=== PATIENT | male | born 1940 | race Caucasian/White ===

== ENCOUNTER 2018-06-23 03:02 | Inpatient (IN) | payer MEDICARE, BC ==
[~2018-06-23] VITALS: Ht 172.7 cm; Wt 54.5 kg
--- NOTE | ~2018-06-23 | MORECARE ---
CASE MANAGEMENT DISCHARGE SUMMARY PATIENT: RUPERTO MOSER UNIT: [id number] ADM DATE: 06/23/18 AGE: 77 : 39 SEX: M ROOM/BED: D.2225 AUTHOR: RAJ,DOC PHYSICIAN: REFERRING PHYSICIAN: MICAELA ARAUJO MD DATE OF SERVICE: 06/24/18 Discharge Plan Patient Name: RUPERTO MOSER Facility: [facility]:[place] : 1940 Planned Disposition: Home Anticipated Discharge Date: Discharge Date: Expected LOS: Initial Reviewer: [email or web address] Initial Review Date: 06/24/2018 Generated: 06/24/18 4:47 pm Comments DCP- Discharge Planning Updated by [email or web address]: Vashti Young on 06/24/18 2:[address] Patient Name: RUPERTO MOSER Admission Status: ER Accout number: [id number] Admission Date: 06-23-2018 : 1940 Admission Diagnosis: Attending: MICAELA ARAUJO Current LOS: 1 Anticipated DC Date: Planned Disposition: Home Primary Insurance: MEDICARE A & B Discharge Planning Comments: CM met with patient and his to discuss discharge planning. He is drowsy from anesthesia so his answers the questions. He lives with his . His sets up his pill box, otherwise he is independent with all ADL's and IADL's. His states he has a nebulizer that he uses PRN and the med comes in the mail. States she is unsure what company they come from. I discuss availability of DME, rehab, SNF and home health. Discharge plan at this time is to return home. She declines need for HHS at this time. CM will continue to follow and assist with discharge planning/needs. Hay Stacker: Vashti Young DCPIA - Discharge Planning Initial Assessment Updated by [email or web address]: Vashti Young on 06/24/18 3:40 pm * Is the patient Alert and Oriented? Yes * How many steps to enter\exit or inside your home? 2/0 * PCP Dr. Araujo * Pharmacy [facility] * Preadmission Environment Home with Family * ADLs Partial Dependent * Partial ADLs (Assistance needed) Medication Management * Equipment Nebulizer * List name and contact numbers for known caregivers / representatives who currently or will assist patient after discharge: [facility] [phone] - [phone] * Verbal permission to speak to the caregivers and representatives has been obtained from the patient. Yes * Community resources currently utilized None * Additional services required to return to the preadmission environment? No * Can the patient safely return to the preadmission environment? Yes * Has this patient been hospitalized within the prior 30 days at any hospital? No Patient Name: RUPERTO MOSER Page 49851 at 1547 All edits/amendments must be made on the electronic document DICTATION DATE: 06/24/181545 MANAGER OF INVESTIGATIONS: EUSEBIO 06/24/181545 RPT#: [id number] DC DATE: STATUS: ADM IN [facility] [address] [place] [address] END OF REPORT
--- NOTE | ~2018-06-23 | CN ---
PATIENT NAME:RUPERTO HUGGINS MEDICAL RECORD: [id number] : 38 LOCATION:D.MS Walker2225 ADMIT DATE: 06/23/18 ACCOUNT: [id number] CONSULTING PHYSICIAN: LUIS ISRAEL MD REFERRING PHYSICIAN: MICAELA ARAUJO MD DATE OF CONSULTATION: 06/25/2018 CONSULT REQUESTING PHYSICIAN: Micaela Araujo MD REASON FOR CONSULTATION: Right lung mass. HISTORY OF PRESENT ILLNESS: Mr. Huggins is a 77-year-old gentleman who was admitted with right upper quadrant pain, turned out to be suppurative cholecystitis, underwent cholecystectomy yesterday. The patient had routine chest radiograph which showed mass in the right mid lung region, confirmed by the CT scan of the chest. The patient denies any headache. No localized weakness. No hemoptysis. He is losing weight because he is not eating well. REVIEW OF THE SYSTEMS: As in history of present illness. PAST MEDICAL HISTORY: 1. COPD. 2. Hypothyroidism. 3. Hypertension. 4. BPH. PAST SURGICAL HISTORY: 1. He is now status post cholecystectomy. 2. Thyroidectomy. ALLERGIES: HE IS ALLERGIC TO SULFA. MEDICATIONS: Learn It [employer] was reviewed. PERSONAL AND SOCIAL HISTORY: The patient is an ex-smoker and drinker. FAMILY HISTORY: Noncontributory. PHYSICAL EXAMINATION: GENERAL: Now, the patient is lying comfortably in bed. He is not in acute distress. VITAL SIGNS: The blood pressure is 104/45, pulse is 80, respiration is 20, temperature is 98.2, and SpO2 is 97% on room air. HEENT: Conjunctivae are pink. Sclerae are not icteric. NECK: Neck is supple. No JVD. CHEST: The chest excursion is minimal on both sides. There is no wheeze and no rale. HEART: Rhythm regular. Normal sound. No murmur. ABDOMEN: Abdomen is soft. Bowel sounds present. No hepatosplenomegaly. RECTAL: Deferred. EXTREMITIES: No cyanosis. No clubbing. No pedal edema. CENTRAL NERVOUS SYSTEM: The patient is awake and alert. He is a bit confused. DIAGNOSTIC DATA: CTA of the chest; there is no PE, but there is 4- x 5.3- x 4.4-cm right-sided mass, pleural based. There is also spiculated nodule in the CONSULT REPORT [id number] RUPERTO HUGGINS right upper lobe. There is another 6-mm right lower lobe nodule. There is a trace pleural effusion. IMPRESSION: 1. Lung mass, right upper lobe, rule out malignancy, primary versus secondary. 2. COPD without exacerbation. 3. Small right pleural effusion. 4. Status post cholecystectomy. 5. Ex-smoker. 6. Dementia. RECOMMENDATION: 1. We will proceed with CT-guided right lung biopsy. 2. Albuterol/ipratropium nebulizer. 3. DVT prophylaxis. 4. Follow up labs and chest radiograph. Dr. Araujo, thank you for involving me in the care of Mr. Huggins. TRANSINT:[id number] Voice Confirmation ID: [id number] DOCUMENT ID: [id number] LUIS ISRAEL MD CC: [id number] DICTATION DATE: 06/25/18 143 ALGOLOGIST: 06/25/18 1822 ADM IN [facility] [address] [place] [address]
--- NOTE | ~2018-06-23 | MORECARE ---
CASE MANAGEMENT DISCHARGE SUMMARY PATIENT: RUPERTO OMSER UNIT: [id number] ADM DATE: 06/23/18 AGE: 77 : 39 SEX: M ROOM/BED: D.2225 AUTHOR: SHU ANTHONY PHYSICIAN: REFERRING PHYSICIAN: MICAELA ARAUJO MD DATE OF SERVICE: 06/28/18 Discharge Plan Patient Name: RUPERTO MOSER Facility: [facility]:[place] : 1940 Planned Disposition: Home Anticipated Discharge Date: Discharge Date: Expected LOS: Initial Reviewer: [email or web address] Initial Review Date: 06/24/2018 Generated: 06/28/18 9:56 pm Comments DCP- Discharge Planning Updated by [email or web address]: Rhea Mao on 06/28/18 7:[address] PHYSICAL THERAPY EVALUATION DONE. AWAITING OT EVAL. ACUTE REHAB PRESCREEN REQUESTED. CM WILL F/U WITH THE REHAB SCREENER IN THE AM TO CONFIRM THE CONSULT RECEIVED. DCP- Discharge Planning Updated by [email or web address]: Vashti Young on 06/24/18 2:[address] Patient Name: RUPERTO MOSER Admission Status: ER Accout number: [id number] Admission Date: 06-23-2018 : 1940 Admission Diagnosis: Attending: MICAELA ARAUJO Current LOS: 1 Anticipated DC Date: Planned Disposition: Home Primary Insurance: MEDICARE A & B Discharge Planning Comments: CM met with patient and his to discuss discharge planning. He is drowsy from anesthesia so his answers the questions. He lives with his . His sets up his pill box, otherwise he is independent with all ADL's and IADL's. His states he has a nebulizer that he uses PRN and the med comes in the mail. States she is unsure what company they come from. I discuss availability of DME, rehab, SNF and home health. Discharge plan at this time is to return home. She declines need for HHS at this time. CM will continue to follow and assist with discharge planning/needs. Tobacco Cutter: Vashti Young DCPIA - Discharge Planning Initial Assessment Updated by [email or web address]: Vashti Young on 06/24/18 3:40 pm * Is the patient Alert and Oriented? Yes * How many steps to enter\exit or inside your home? 2/0 * PCP Dr. Araujo * [facility] * Preadmission Environment Home with Family * ADLs Partial Dependent * Partial ADLs (Assistance needed) Medication Management * Equipment Nebulizer * List name and contact numbers for known caregivers / representatives who currently or will assist patient after discharge: [facility] - [phone] [facility] [phone] * Verbal permission to speak to the caregivers and representatives has been obtained from the patient. Yes * Community resources currently utilized None * Additional services required to return to the preadmission environment? No * Can the patient safely return to the preadmission environment? Yes * Has this patient been hospitalized within the prior 30 days at any hospital? No Last DP export: 06/24/18 2:47 Patient Name: RUPERTO MOSER Page 28823 at 205 All edits/amendments must be made on the electronic document DICTATION DATE: 06/28/182055 BIOFUELS PRODUCTION ASSOCIATE: EUSEBIO 06/28/182055 RPT#: [id number] DC DATE: STATUS: ADM IN [facility] [address] [place] [address] END OF REPORT
--- NOTE | ~2018-06-23 | HP ---
PATIENT: RUPERTO MOSER MEDICAL RECORD: [id number] ACCOUNT: [id number] LOCATION:D.MS Walker2225 : [birth year] ADMISSION DATE: 06/23/18 PCP: MANDA ARAUJO MD HISTORY AND PHYSICAL EXAMINATION DATE OF ADMISSION: 06/23/2018 CHIEF COMPLAINT: Abdominal pain. HISTORY OF PRESENT ILLNESS: The patient is a 77-year-old gentleman with longstanding history of alcoholism. The patient states that on Friday, he developed pain in the right upper quadrant, pain had become severely intense. He has had nausea and vomiting, now is complaining of having pain in the lower part of his abdomen. The states that the patient has ate very little food. PAST MEDICAL HISTORY: Significant that he has had history of COPD. He has also had hypothyroidism, he has had hypertension, and BPH. PAST SURGICAL HISTORY: He has had a partial thyroidectomy. He has had hand surgery. The patient has had numerous skin cancers removed. MEDICATIONS: Currently, include levothyroxine 100 mcg once a day, metoprolol 25 mg p.o. b.i.d., oxybutynin 5 mg p.r.n. every day, Protonix 40 mg once a day, ProAir HFA 90 mcg q.4 hours p.r.n. shortness of breath, tamsulosin 0.4 mg once a day. ALLERGIES: THE PATIENT HAS ALLERGY TO SULFA. SOCIAL HISTORY: The patient retired from [employer]. He is . Educated through the 12th grade. HABITS: The patient has been a 1 pack per day smoker. He also has been a heavy drinker. FAMILY HISTORY: Mother of pneumonia at 72. Father has CVA, at 83. One brother of substance abuse. REVIEW OF SYSTEMS: CONSTITUTIONAL: He denies any headaches, seizure, or syncope. Denies change in vision or auditory acuity. PULMONARY: He denies any shortness of breath, cough, congestion, history of TB, asthma, or bronchitis. CARDIOVASCULAR: No chest pain, palpitations, PND, or orthopnea. GASTROINTESTINAL: No chronic nausea, vomiting, melena or hematochezia. GENITOURINARY: No urgency, frequency, or dysuria. PHYSICAL EXAMINATION: GENERAL: In the Emergency Room, this patient was in moderate amount of distress. He was alert. He was oriented times 3. VITAL SIGNS: He had a pulse of 114, his respirations 20, his blood pressure 135/84, his O2 sat was 98%. His temperature was 97.5. HEENT: Head is normocephalic. No lesions. Ears: TMs clear. Eyes: Pupils equal, round, reactive to light. His extraocular movements are intact. His nasal cavity, oral cavity, and oropharynx clear. NECK: Supple. There is no adenopathy. HISTORY AND PHYSICAL [id number] COCKMAN,RUPERTO HEART: Slightly tachycardic. LUNGS: Clear. ABDOMEN: He did have some right upper quadrant tenderness with some rebound and guarding, some subjective lower abdominal discomfort. LABORATORY DATA: Sodium 137, potassium 3.5, his chloride was 98. BUN was 18, creatinine 1.1. Cardiac enzymes were unremarkable. Liver functions unremarkable. White count is elevated at 16.9, hemoglobin 17, hematocrit 48.2, his platelets were 155. DIAGNOSTIC DATA: CT scan as reported by the Emergency Room physician showed findings consistent with acute cholecystitis. ASSESSMENT: History of acute cholecystitis, history of alcoholism, hypothyroidism, hypertension, gastroesophageal reflux, history of COPD. PLAN: The patient is admitted. Surgical consultation will be obtained. The patient will be started on morphine for pain as well as Zofran for nausea, IV Protonix. Blood cultures will be obtained. Correct his potassium. TRANSINT:[id number] Voice Confirmation ID: [id number] DOCUMENT ID: [id number] MICAELA ARAUJO MD at 0656 CC: [id number] DICTATION DATE: 06/23/18730 TELECOMMUNICATIONS SPECIALIST: 06/23/18 0755 ADM IN [facility] [address] [place] [address]
[2018-06-23] MEDS ORDERED: LEVOXYL100 MCG PO (03:06)
[2018-06-23] MEDS ORDERED: FLOMAX0.4 MG PO (03:06)
[2018-06-23] MEDS ORDERED: TOPROL XL25 MG PO (03:06)
[2018-06-23] MEDS ORDERED: PROTONIX40 MG PO (03:07)
[2018-06-23 03:28] LABS: BASOPHILS 0.1 % (0-2); EOSINOPHILS 0.3 % (0-7); HEMATOCRIT 48.2 % (42.0-54.0); IMMATURE GRANULOCYTES 0.4 % (0-5); LYMPHOCYTES 3.8 % (15-50); MCH 34.7 pg (26.0-34.0); MCHC 35.3 g/dL (31.0-37.0); MCV 98.4 fL (80.0-100.0); MEAN PLATELET VOLUME 11.8 fL (7.4-10.4); MONOCYTES 9.5 % (2-11); NEUTROPHILS 85.9 % (40-80); RDW 13.4 % (11.5-14.5); WBC 16.9 10x3/uL (4.8-10.8)
[2018-06-23 03:32] LABS: PLATELET COUNT 151 10x3/uL (130-400)
[2018-06-23 03:38] LABS: ALBUMIN 2.8 g/dL (3.4-5.0); ALKALINE PHOSPHATASE 76 U/L (46-116); ALT (SGPT) 7 U/L (10-68); BILIRUBIN - TOTAL 1.46 mg/dL (0.2-1.3); CALC OSMOLALITY 276 mosm/kg (275-300); CALCIUM 8.8 mg/dL (8.5-10.1); CHLORIDE - SERUM 98 mmol/L (98-107); CREATININE - SERUM 1.1 mg/dL (0.6-1.3); GLUCOSE 115 mg/dL (74-106); POTASSIUM - SERUM 3.5 mmol/L (3.5-5.1); PROTEIN - SERUM 7.2 g/dL (6.4-8.2); SODIUM 137 mmol/L (136-145); UREA NITROGEN 18 mg/dL (7-18); eGFR NON AFRICAN AMERICAN 69 mL/min (90-120)
[2018-06-23 03:49] LABS: AMYLASE - SERUM 11 U/L (25-115); LIPASE 77 U/L (73-393)
[2018-06-23 03:50] LABS: TROPONIN-I < 0.017 ng/mL (0.000-0.060)
[2018-06-23 06:35] VITALS: BP 130/70
[2018-06-23 08:05] VITALS: BP 120/66
[2018-06-23 08:05] LABS: INR 1.11 (0.85-1.17); PROTIME 13.8 SECONDS (11.6-15.0)
[2018-06-23 12:02] VITALS: BP 112/64
[2018-06-23 14:30] VITALS: BMI 18.2
[2018-06-23 16:21] VITALS: BP 107/59
[2018-06-23 16:22] LABS: APPEARANCE CLEAR (CLEAR); BILIRUBIN NEGATIVE (NEGATIVE); COLOR DK YELLOW (YELLOW); GLUCOSE NEGATIVE (NEGATIVE); KETONE NEGATIVE (NEGATIVE); NITRITE NEGATIVE (NEGATIVE); PROTEIN NEGATIVE (NEGATIVE); UROBILINOGEN NORMAL (NORMAL)
[2018-06-23 16:51] VITALS: BMI 18.2
[2018-06-23 21:01] VITALS: BP 139/65
[2018-06-24 01:39] VITALS: BP 115/57
[2018-06-24 04:39] LABS: ALKALINE PHOSPHATASE 75 U/L (46-116); BILIRUBIN - TOTAL 0.74 mg/dL (0.2-1.3); CALC OSMOLALITY 284 mosm/kg (275-300); CALCIUM 7.4 mg/dL (8.5-10.1); CARBON DIOXIDE 28.4 mmol/L (21.0-32.0); CHLORIDE - SERUM 107 mmol/L (98-107); GLUCOSE 103 mg/dL (74-106); POTASSIUM - SERUM 3.6 mmol/L (3.5-5.1); PROTEIN - SERUM 5.6 g/dL (6.4-8.2); SODIUM 142 mmol/L (136-145); UREA NITROGEN 19 mg/dL (7-18); eGFR NON AFRICAN AMERICAN 77 mL/min (90-120)
[2018-06-24 04:40] LABS: ALT (SGPT) 5 U/L (10-68)
[2018-06-24 04:54] LABS: BASOPHILS 0.2 % (0-2); EOSINOPHILS 1.3 % (0-7); HEMATOCRIT 39.3 % (42.0-54.0); IMMATURE GRANULOCYTES 0.1 % (0-5); LYMPHOCYTES 4.8 % (15-50); MCH 33.2 pg (26.0-34.0); MCHC 33.1 g/dL (31.0-37.0); MEAN PLATELET VOLUME 11.8 fL (7.4-10.4); MONOCYTES 11.6 % (2-11); PLATELET COUNT 155 10x3/uL (130-400); RDW 13.6 % (11.5-14.5)
[2018-06-24 04:55] LABS: MCV 100.5 fL (80.0-100.0); RBC 3.91 10x6/uL (4.20-6.10); WBC 10.3 10x3/uL (4.8-10.8)
[2018-06-24 05:58] VITALS: BP 124/64
[2018-06-24 09:38] VITALS: BP 150/70
[2018-06-24 13:30] VITALS: BP 110/60
[2018-06-24 17:15] VITALS: BP 122/64
[2018-06-24 21:13] VITALS: BP 133/64
[2018-06-25 04:25] LABS: BASOPHILS 0.1 % (0-2); EOSINOPHILS 0 % (0-7); HEMATOCRIT 40.1 % (42.0-54.0); HEMOGLOBIN 13.4 g/dL (13.5-17.5); IMMATURE GRANULOCYTES 0.5 % (0-5); LYMPHOCYTES 2.3 % (15-50); MCH 33.6 pg (26.0-34.0); MCHC 33.4 g/dL (31.0-37.0); MCV 100.5 fL (80.0-100.0); MEAN PLATELET VOLUME 11.2 fL (7.4-10.4); MONOCYTES 11.9 % (2-11); NEUTROPHILS 85.2 % (40-80); PLATELET COUNT 178 10x3/uL (130-400); RBC 3.99 10x6/uL (4.20-6.10); RDW 13.3 % (11.5-14.5); WBC 10.9 10x3/uL (4.8-10.8)
[2018-06-25 04:33] VITALS: BP 103/45
[2018-06-25 04:47] LABS: ALBUMIN 1.7 g/dL (3.4-5.0); ALKALINE PHOSPHATASE 201 U/L (46-116); BILIRUBIN - TOTAL 3.94 mg/dL (0.2-1.3); CALCIUM 7.1 mg/dL (8.5-10.1); CARBON DIOXIDE 25.8 mmol/L (21.0-32.0); CHLORIDE - SERUM 107 mmol/L (98-107); PROTEIN - SERUM 5.5 g/dL (6.4-8.2); SODIUM 140 mmol/L (136-145); UREA NITROGEN 18 mg/dL (7-18); eGFR NON AFRICAN AMERICAN 77 mL/min (90-120)
[2018-06-25 04:59] LABS: ALT (SGPT) 98 U/L (10-68); CALC OSMOLALITY 286 mosm/kg (275-300); GLUCOSE 212 mg/dL (74-106)
[2018-06-25 08:30] VITALS: BP 114/78
[2018-06-25 12:32] VITALS: BP 104/45; BP 125/55
[2018-06-25 21:19] VITALS: BP 148/72
[2018-06-26 04:02] LABS: BASOPHILS 0.1 % (0-2); EOSINOPHILS 0 % (0-7); HEMATOCRIT 39.2 % (42.0-54.0); HEMOGLOBIN 13.2 g/dL (13.5-17.5); IMMATURE GRANULOCYTES 0.4 % (0-5); LYMPHOCYTES 7.3 % (15-50); MCH 33.2 pg (26.0-34.0); MCHC 33.7 g/dL (31.0-37.0); MCV 98.7 fL (80.0-100.0); MONOCYTES 8.2 % (2-11); PLATELET COUNT 190 10x3/uL (130-400); RBC 3.97 10x6/uL (4.20-6.10); RDW 13.2 % (11.5-14.5); WBC 13.6 10x3/uL (4.8-10.8)
[2018-06-26 04:14] LABS: CALC OSMOLALITY 284 mosm/kg (275-300); CARBON DIOXIDE 24.9 mmol/L (21.0-32.0); CHLORIDE - SERUM 107 mmol/L (98-107); CREATININE - SERUM 0.9 mg/dL (0.6-1.3); POTASSIUM - SERUM 3.6 mmol/L (3.5-5.1); SODIUM 142 mmol/L (136-145); UREA NITROGEN 17 mg/dL (7-18); eGFR NON AFRICAN AMERICAN 87 mL/min (90-120)
[2018-06-26 04:20] LABS: GLUCOSE 99 mg/dL (74-106)
[2018-06-26 06:48] LABS: APTT 34.1 SECONDS (22.8-39.4); INR 1.13 (0.85-1.17)
[2018-06-26 09:00] VITALS: BP 121/49
[2018-06-26 16:39] VITALS: BP 146/76
[2018-06-26 21:15] VITALS: BP 147/78
[2018-06-27 01:19] VITALS: BP 146/70
[2018-06-27 05:15] VITALS: BP 139/53
[2018-06-27 05:43] LABS: BASOPHILS 0.1 % (0-2); EOSINOPHILS 0.5 % (0-7); HEMATOCRIT 36.5 % (42.0-54.0); HEMOGLOBIN 12.3 g/dL (13.5-17.5); IMMATURE GRANULOCYTES 0.5 % (0-5); LYMPHOCYTES 9.4 % (15-50); MCH 33.1 pg (26.0-34.0); MCHC 33.7 g/dL (31.0-37.0); MCV 98.1 fL (80.0-100.0); MEAN PLATELET VOLUME 10.5 fL (7.4-10.4); MONOCYTES 11.2 % (2-11); NEUTROPHILS 78.3 % (40-80); PLATELET COUNT 197 10x3/uL (130-400); RBC 3.72 10x6/uL (4.20-6.10); RDW 13.3 % (11.5-14.5)
[2018-06-27 05:48] LABS: WBC 8.4 10x3/uL (4.8-10.8)
[2018-06-27 06:06] LABS: ALBUMIN 1.7 g/dL (3.4-5.0); ALKALINE PHOSPHATASE 350 U/L (46-116); ALT (SGPT) 251 U/L (10-68); BILIRUBIN - TOTAL 5.56 mg/dL (0.2-1.3); CALC OSMOLALITY 291 mosm/kg (275-300); CALCIUM 7.8 mg/dL (8.5-10.1); CARBON DIOXIDE 28.4 mmol/L (21.0-32.0); CHLORIDE - SERUM 111 mmol/L (98-107); CREATININE - SERUM 0.7 mg/dL (0.6-1.3); GLUCOSE 90 mg/dL (74-106); MAGNESIUM - SERUM 1.4 mg/dL (1.8-2.4); PHOSPHOROUS 1.8 mg/dL (2.5-4.9); POTASSIUM - SERUM 3.6 mmol/L (3.5-5.1); PROTEIN - SERUM 5.1 g/dL (6.4-8.2); SODIUM 146 mmol/L (136-145); UREA NITROGEN 14 mg/dL (7-18); eGFR NON AFRICAN AMERICAN > 90 mL/min (90-120)
[2018-06-27 08:32] VITALS: BP 141/95
[2018-06-27 14:15] VITALS: BP 134/77
[2018-06-27 16:20] VITALS: BP 130/85
[2018-06-27 20:51] VITALS: BP 161/77
[2018-06-28 01:52] VITALS: BP 164/74
[2018-06-28 05:05] VITALS: BP 154/79
[2018-06-28 05:36] LABS: BASOPHILS 0.1 % (0-2); EOSINOPHILS 1.1 % (0-7); HEMATOCRIT 40.8 % (42.0-54.0); HEMOGLOBIN 13.7 g/dL (13.5-17.5); IMMATURE GRANULOCYTES 0.7 % (0-5); LYMPHOCYTES 10.2 % (15-50); MCH 33.3 pg (26.0-34.0); MCHC 33.6 g/dL (31.0-37.0); MEAN PLATELET VOLUME 10.7 fL (7.4-10.4); NEUTROPHILS 78.9 % (40-80); PLATELET COUNT 227 10x3/uL (130-400); RBC 4.12 10x6/uL (4.20-6.10); RDW 13.7 % (11.5-14.5); WBC 10.1 10x3/uL (4.8-10.8)
[2018-06-28 05:59] LABS: ALBUMIN 1.9 g/dL (3.4-5.0); ALKALINE PHOSPHATASE 432 U/L (46-116); ALT (SGPT) 208 U/L (10-68); BILIRUBIN - TOTAL 4.68 mg/dL (0.2-1.3); CALCIUM 7.6 mg/dL (8.5-10.1); CARBON DIOXIDE 30.2 mmol/L (21.0-32.0); CHLORIDE - SERUM 109 mmol/L (98-107); CREATININE - SERUM 0.7 mg/dL (0.6-1.3); GLUCOSE 101 mg/dL (74-106); POTASSIUM - SERUM 3.4 mmol/L (3.5-5.1); SODIUM 145 mmol/L (136-145); eGFR NON AFRICAN AMERICAN > 90 mL/min (90-120)
[2018-06-28 06:00] LABS: CALC OSMOLALITY 287 mosm/kg (275-300); MAGNESIUM - SERUM 1.8 mg/dL (1.8-2.4); UREA NITROGEN 10 mg/dL (7-18)
[2018-06-28 08:00] VITALS: BP 163/85
[2018-06-28 13:49] VITALS: BP 142/63
[2018-06-28 18:12] VITALS: BP 143/93
[2018-06-28 20:00] VITALS: BP 148/64
[2018-06-29] VITALS: BP 186/92
[2018-06-29 04:00] VITALS: BP 177/74
[2018-06-29 04:02] LABS: BASOPHILS 0.1 % (0-2); EOSINOPHILS 1.5 % (0-7); HEMATOCRIT 37.4 % (42.0-54.0); HEMOGLOBIN 12.4 g/dL (13.5-17.5); IMMATURE GRANULOCYTES 1.2 % (0-5); LYMPHOCYTES 9.5 % (15-50); MCH 32.8 pg (26.0-34.0); MCHC 33.2 g/dL (31.0-37.0); MCV 98.9 fL (80.0-100.0); MEAN PLATELET VOLUME 10.9 fL (7.4-10.4); MONOCYTES 7.2 % (2-11); NEUTROPHILS 80.5 % (40-80); PLATELET COUNT 251 10x3/uL (130-400); RBC 3.78 10x6/uL (4.20-6.10); RDW 13.9 % (11.5-14.5)
[2018-06-29 04:22] LABS: ALBUMIN 1.7 g/dL (3.4-5.0); ALKALINE PHOSPHATASE 357 U/L (46-116); ALT (SGPT) 121 U/L (10-68); BILIRUBIN - TOTAL 2.68 mg/dL (0.2-1.3); CALC OSMOLALITY 290 mosm/kg (275-300); CALCIUM 7.6 mg/dL (8.5-10.1); CARBON DIOXIDE 30.2 mmol/L (21.0-32.0); CHLORIDE - SERUM 111 mmol/L (98-107); CREATININE - SERUM 0.6 mg/dL (0.6-1.3); GLUCOSE 105 mg/dL (74-106); MAGNESIUM - SERUM 2.1 mg/dL (1.8-2.4); PHOSPHOROUS 2.2 mg/dL (2.5-4.9); POTASSIUM - SERUM 3.2 mmol/L (3.5-5.1); PROTEIN - SERUM 5.2 g/dL (6.4-8.2); SODIUM 147 mmol/L (136-145); UREA NITROGEN 11 mg/dL (7-18); eGFR NON AFRICAN AMERICAN > 90 mL/min (90-120)
[2018-06-29 08:45] VITALS: BP 146/47
[2018-06-29 13:05] VITALS: BP 156/69
[2018-06-29 16:35] VITALS: BP 146/71
[2018-06-29 19:23] VITALS: Ht 172.7 cm; Wt 54.5 kg
[2018-06-30 04:44] LABS: BASOPHILS 0.1 % (0-2); EOSINOPHILS 1.3 % (0-7); HEMATOCRIT 40.4 % (42.0-54.0); HEMOGLOBIN 13.1 g/dL (13.5-17.5); IMMATURE GRANULOCYTES 1.1 % (0-5); LYMPHOCYTES 7.7 % (15-50); MCH 32.8 pg (26.0-34.0); MCHC 32.4 g/dL (31.0-37.0); MCV 101.3 fL (80.0-100.0); MEAN PLATELET VOLUME 11.2 fL (7.4-10.4); MONOCYTES 4.9 % (2-11); NEUTROPHILS 84.9 % (40-80); PLATELET COUNT 317 10x3/uL (130-400); RBC 3.99 10x6/uL (4.20-6.10); RDW 14.1 % (11.5-14.5); WBC 17.9 10x3/uL (4.8-10.8)
[2018-06-30 04:45] LABS: BILIRUBIN - DIRECT 1.37 mg/dL (0.00-0.30); CALC OSMOLALITY 294 mosm/kg (275-300); CALCIUM 8.1 mg/dL (8.5-10.1); CARBON DIOXIDE 30.9 mmol/L (21.0-32.0); CHLORIDE - SERUM 110 mmol/L (98-107); CREATININE - SERUM 0.7 mg/dL (0.6-1.3); GLUCOSE 113 mg/dL (74-106); PHOSPHOROUS 2.4 mg/dL (2.5-4.9); POTASSIUM - SERUM 3.4 mmol/L (3.5-5.1); SODIUM 148 mmol/L (136-145); UREA NITROGEN 13 mg/dL (7-18); eGFR NON AFRICAN AMERICAN > 90 mL/min (90-120)
[2018-06-30 04:53] LABS: INR 1.16 (0.85-1.17); PROTIME 14.3 SECONDS (11.6-15.0)
[2018-06-30 05:46] VITALS: BP 134/60
[2018-06-30 09:21] VITALS: BP 150/73
[2018-06-30 12:51] VITALS: BP 148/74
[2018-06-30 17:31] VITALS: BP 147/73
== END 2018-06-30 18:40 | DRG 418 ==
LOC: D.ER 03:02 → D.MS 06:31
PROVIDERS: Family Medicine; Radiology Diagnostic Radiology; Surgery
PROC: 0FT44ZZ Resection of Gallbladder, Percutaneous Endoscopic Approach (ICD-10-PCS; principal; 2018-06-24 10:15)
PROC: 0BBK3ZX Excision of Right Lung, Percutaneous Approach, Diagnostic (ICD-10-PCS; 2018-06-26)
DX: K81.0 Acute cholecystitis (principal); F10.231 Alcohol dependence with withdrawal delirium; Z68.1 Body mass index [BMI] 19.9 or less, adult; C78.01 Secondary malignant neoplasm of right lung; K82.A1 Gangrene of gallbladder in cholecystitis; J44.9 Chronic obstructive pulmonary disease, unspecified; I10 Essential (primary) hypertension; F10.97 Alcohol use, unspecified with alcohol-induced persisting dementia; R91.1 Solitary pulmonary nodule; D49.1 Neoplasm of unspecified behavior of respiratory system; C80.1 Malignant (primary) neoplasm, unspecified; E87.6 Hypokalemia

== ENCOUNTER 2018-06-30 19:01 | Inpatient (IN) | payer MEDICARE, BC ==
[~2018-06-30] VITALS: Ht 172.7 cm; Wt 56.5 kg
[~2018-06-30 19:01] MED LIST: FLOMAX0.4 MG PO; LEVOXYL100 MCG PO; PROTONIX40 MG PO; TOPROL XL25 MG PO
[2018-06-30 23:41] VITALS: BP 163/91; BMI 18.2
[2018-07-01 06:53] LABS: BASOPHILS 0.1 % (0-2); EOSINOPHILS 0.6 % (0-7); HEMATOCRIT 37.1 % (42.0-54.0); HEMOGLOBIN 12.1 g/dL (13.5-17.5); IMMATURE GRANULOCYTES 0.8 % (0-5); LYMPHOCYTES 6.5 % (15-50); MCH 33.1 pg (26.0-34.0); MCHC 32.6 g/dL (31.0-37.0); MCV 101.4 fL (80.0-100.0); MEAN PLATELET VOLUME 11.2 fL (7.4-10.4); MONOCYTES 3.7 % (2-11); NEUTROPHILS 88.3 % (40-80); PLATELET COUNT 312 10x3/uL (130-400); RBC 3.66 10x6/uL (4.20-6.10); RDW 14.1 % (11.5-14.5); WBC 17.5 10x3/uL (4.8-10.8)
[2018-07-01 07:10] LABS: CALC OSMOLALITY 287 mosm/kg (275-300); CARBON DIOXIDE 28.9 mmol/L (21.0-32.0); CHLORIDE - SERUM 108 mmol/L (98-107); CREATININE - SERUM 0.7 mg/dL (0.6-1.3); GLUCOSE 92 mg/dL (74-106); POTASSIUM - SERUM 3.7 mmol/L (3.5-5.1); SODIUM 145 mmol/L (136-145); UREA NITROGEN 10 mg/dL (7-18); eGFR NON AFRICAN AMERICAN > 90 mL/min (90-120)
[2018-07-01 08:00] VITALS: BP 175/86
[2018-07-01 13:11] VITALS: BMI 18.2
[2018-07-01 19:00] VITALS: BP 173/82
[2018-07-02 08:00] VITALS: BP 156/77
[2018-07-02 19:00] VITALS: BP 158/80
[2018-07-03 07:14] LABS: BASOPHILS 0.2 % (0-2); EOSINOPHILS 0.9 % (0-7); HEMATOCRIT 38.2 % (42.0-54.0); HEMOGLOBIN 12.4 g/dL (13.5-17.5); IMMATURE GRANULOCYTES 0.6 % (0-5); LYMPHOCYTES 7.8 % (15-50); MCH 32.9 pg (26.0-34.0); MCHC 32.5 g/dL (31.0-37.0); MCV 101.3 fL (80.0-100.0); MEAN PLATELET VOLUME 11.1 fL (7.4-10.4); NEUTROPHILS 86.5 % (40-80); PLATELET COUNT 372 10x3/uL (130-400); RBC 3.77 10x6/uL (4.20-6.10); RDW 13.8 % (11.5-14.5); WBC 13.2 10x3/uL (4.8-10.8)
[2018-07-03 07:26] LABS: CALC OSMOLALITY 286 mosm/kg (275-300); CALCIUM 8.5 mg/dL (8.5-10.1); CARBON DIOXIDE 33.9 mmol/L (21.0-32.0); CHLORIDE - SERUM 105 mmol/L (98-107); CREATININE - SERUM 0.8 mg/dL (0.6-1.3); GLUCOSE 86 mg/dL (74-106); POTASSIUM - SERUM 3.4 mmol/L (3.5-5.1); SODIUM 145 mmol/L (136-145); UREA NITROGEN 9 mg/dL (7-18); eGFR NON AFRICAN AMERICAN > 90 mL/min (90-120)
[2018-07-03 08:00] VITALS: BP 156/72
[2018-07-03 19:00] VITALS: BP 143/68
[2018-07-04 09:06] VITALS: BP 158/77
[2018-07-04 23:21] VITALS: BP 152/75
[2018-07-05 08:00] VITALS: BP 133/79
[2018-07-05 20:58] VITALS: BP 152/84
[2018-07-06 06:49] LABS: BASOPHILS 0.2 % (0-2); HEMOGLOBIN 12.5 g/dL (13.5-17.5); IMMATURE GRANULOCYTES 0.2 % (0-5); LYMPHOCYTES 11.5 % (15-50); MCH 32.6 pg (26.0-34.0); MCHC 32.9 g/dL (31.0-37.0); MEAN PLATELET VOLUME 11.3 fL (7.4-10.4); NEUTROPHILS 82.1 % (40-80); PLATELET COUNT 422 10x3/uL (130-400); RBC 3.84 10x6/uL (4.20-6.10); RDW 13.8 % (11.5-14.5); WBC 12.6 10x3/uL (4.8-10.8)
[2018-07-06 07:11] LABS: CALC OSMOLALITY 281 mosm/kg (275-300); CALCIUM 8.6 mg/dL (8.5-10.1); CARBON DIOXIDE 33.6 mmol/L (21.0-32.0); CHLORIDE - SERUM 103 mmol/L (98-107); CREATININE - SERUM 0.8 mg/dL (0.6-1.3); GLUCOSE 87 mg/dL (74-106); POTASSIUM - SERUM 3.4 mmol/L (3.5-5.1); SODIUM 143 mmol/L (136-145); UREA NITROGEN 8 mg/dL (7-18); eGFR NON AFRICAN AMERICAN > 90 mL/min (90-120)
[2018-07-06 08:05] VITALS: BP 177/84
[2018-07-06 19:02] VITALS: BP 129/65
[2018-07-07 07:55] VITALS: BP 137/70
[2018-07-07 21:26] VITALS: BP 134/53
[2018-07-08 06:08] LABS: BASOPHILS 0.2 % (0-2); EOSINOPHILS 2.1 % (0-7); HEMATOCRIT 38.2 % (42.0-54.0); HEMOGLOBIN 12.4 g/dL (13.5-17.5); IMMATURE GRANULOCYTES 0.4 % (0-5); LYMPHOCYTES 12.6 % (15-50); MCH 32.6 pg (26.0-34.0); MCHC 32.5 g/dL (31.0-37.0); MCV 100.5 fL (80.0-100.0); MEAN PLATELET VOLUME 11.4 fL (7.4-10.4); MONOCYTES 6.4 % (2-11); NEUTROPHILS 78.3 % (40-80); PLATELET COUNT 444 10x3/uL (130-400); RDW 14.2 % (11.5-14.5); WBC 12.2 10x3/uL (4.8-10.8)
[2018-07-08 06:21] LABS: CALCIUM 8.9 mg/dL (8.5-10.1); CARBON DIOXIDE 34.5 mmol/L (21.0-32.0); CHLORIDE - SERUM 104 mmol/L (98-107); CREATININE - SERUM 0.9 mg/dL (0.6-1.3); GLUCOSE 96 mg/dL (74-106); SODIUM 142 mmol/L (136-145); eGFR NON AFRICAN AMERICAN 87 mL/min (90-120)
[2018-07-08 06:23] LABS: CALC OSMOLALITY 282 mosm/kg (275-300); POTASSIUM - SERUM 4.7 mmol/L (3.5-5.1); UREA NITROGEN 12 mg/dL (7-18)
[2018-07-08 08:00] VITALS: BP 120/66
[2018-07-08 20:20] VITALS: BP 121/62
[2018-07-08 20:59] VITALS: Ht 172.7 cm; Wt 56.5 kg
[2018-07-09 08:00] VITALS: BP 119/59
--- NOTE | 2018-07-09 15:03 | RHP ---
PATIENT: RUPERTO MOSER MEDICAL RECORD: [id number] ACCOUNT: [id number] LOCATION:[id number] : 38 ADMISSION DATE: 06/30/18 REHABILITATION HISTORY AND PHYSICAL EXAMINATION POST ADMISSION PHYSICIAN EXAMINATION ADMITTING DIAGNOSIS: Chronic obstructive pulmonary disease. HISTORY OF PRESENT ILLNESS: The patient is admitted to inpatient rehab for a pulmonary diagnosis of COPD. He apparently developed some pain on 06/20/2018 in his right upper quadrant, became intense. He had nausea and vomiting, presented to the ED with complaints of having pain. He has got history of COPD, hypothyroidism, hypertension, BPH, longstanding history of alcoholism, nicotine dependence. CT scan was consistent with acute cholecystitis. He underwent a laparoscopic cholecystectomy on 06/24/2018. During his acute stay, he was found to have a mass in his chest x-ray that was followed by a CT of his chest, which demonstrated a 5.3 cm right lower lobe mass and 1.6 spiculated opacity in the right upper lobe at the apex. It was diagnosed with scarring versus cancer. He underwent a CT-guided biopsy, which showed adenocarcinoma. He has become weak. He is oxygen dependent, debilitating for mobility, requiring supplemental O2 as needed, increasing shortness of breath and confusion. These are all barriers to his discharge at home. He lives at home with his , was independent with his mobility and ADLs prior to this. He is currently set up for min assist with ADLs and mod assist with mobility, tiring very easily and becoming shortness of breath with any type of exertion. He and his plan for him to return home at his prior level of functioning and hopefully be able to develop a treatment plan for his new diagnosis of adenocarcinoma in his right lower lobe of his lung. COMORBIDITIES: In this patient include an adenocarcinoma of the lung, COPD, small right pleural effusion, ex-smoker, dementia, alcohol use, leukocytosis, anemia, hypokalemia, hypothyroidism, hypertension, BPH, abdominal pain, necrotizing cholecystitis and acute hemorrhagic serositis. PAST MEDICAL HISTORY: Significant for MS, COPD, hypothyroidism, hypertension, BPH, alcohol use, syndactyly and tobacco use. PAST SURGICAL HISTORY: Includes thyroidectomy, hand surgery, numerous skin surgeries removed, back surgery and now cholecystectomy. ALLERGIES: SULFA. CURRENT MEDICATIONS: Include Flomax 0.4 mg daily, Protonix 40 mg daily, metoprolol 25 mg daily, Synthroid 100 mcg daily, polyethylene glycol 17 grams in 8 ounce of water daily and Benadryl p.r.n. HABITS: No current alcohol or tobacco use. He does have a history of alcohol and tobacco use. FAMILY HISTORY: Noncontributory. SOCIAL HISTORY: The patient hopes to return back home with his , hopefully we will work out some type of treatment plan with heme/onc about his cancer. REVIEW OF SYSTEMS: HISTORY AND PHYSICAL [id number] RUPERTO MOSER GENERAL: He does complain of weakness and fatigue. HEENT: Denies cold, cough, or congestion. CARDIOVASCULAR: He denies chest pain. PHYSICAL EXAMINATION: VITAL SIGNS: Stable, afebrile. GENERAL: A very thin elderly gentleman, in no acute distress, alert upon exam. HEENT: Normocephalic and atraumatic. Mucosa moist. NECK: Supple. No lymphadenopathy. LUNGS: Clear in upper mckeon. He does have decreased breath sounds in both bases. HEART: Regular rate and rhythm. He is somewhat tachycardic. ABDOMEN: Benign. He has postop areas from his laparoscopic cholecystectomy that look well. EXTREMITIES: No clubbing, cyanosis or edema. NEUROLOGIC: He is a little bit slow to mentate, but mainly noted to have proximal muscle weakness. LABORATORY DATA: White count of 18.5, H&H 12 and 37, and his platelet count is noted to be 312. Sodium is 145, potassium 3.7, BUN and creatinine of 10 and 0.7 and blood sugar is noted to be 92. ASSESSMENT: This is a 77-year-old gentleman admitted to the rehab with a working diagnosis of chronic obstructive pulmonary disease exacerbation along with noted adenocarcinoma. The patient has potential to make improvement. We instituted the following multidisciplinary therapies including, but not limited to physical, occupational, respiratory, speech, nutritional services, prosthetics and orthotics. Given his complex medical condition and risk for more complications, rehabilitation services cannot be provided at a low level of care such a skilled nurse facility. PLAN: 1. Admit to [facility] for intensive inpatient therapy to include the following disciplines: A. Physical therapy to improve gait, all transfer skills and bed mobility to a modified independent level. B. Occupational therapy to a modified independent level. C. Case management to assist with discharge planning and placement options. D. Nutrition to assist with nutritional needs. E. Rehabilitation nursing to assist in monitoring the patient's underlying medical conditions and to assist with any type of bowel or bladder management. 2. The patient's current medication and medical care will be continued. 3. We will follow his blood work closely during his stay. 4. I am going to follow up as needed. TRANSINT:[id number] Voice Confirmation ID: [id number] DOCUMENT ID: [id number] HENRY notes whether there has been none or any medical/functional change since admission: - No change since preadmission screen. HENRY attests patient continues to be appropriate for IRF: - Continues to be appropriate. HISTORY AND PHYSICAL [id number] RUPERTO MOSER SCOTT MD at 1503 CC: [id number] DICTATION DATE: 07/01/18813 LICENSED PROSTHETIST: 07/01/18 0838 ADM IN [facility] [address] [place] [id number]
[2018-07-09 19:00] VITALS: BP 126/61
[2018-07-10 08:00] VITALS: BP 122/64
[2018-07-10 08:34] LABS: BASOPHILS 0.3 % (0-2); EOSINOPHILS 1.5 % (0-7); HEMATOCRIT 39.4 % (42.0-54.0); HEMOGLOBIN 12.8 g/dL (13.5-17.5); IMMATURE GRANULOCYTES 0.4 % (0-5); LYMPHOCYTES 12.4 % (15-50); MCH 32.4 pg (26.0-34.0); MCHC 32.5 g/dL (31.0-37.0); MCV 99.7 fL (80.0-100.0); MEAN PLATELET VOLUME 12.1 fL (7.4-10.4); MONOCYTES 6.6 % (2-11); NEUTROPHILS 78.8 % (40-80); PLATELET COUNT 440 10x3/uL (130-400); RBC 3.95 10x6/uL (4.20-6.10); RDW 13.8 % (11.5-14.5)
[2018-07-10 08:45] LABS: CALC OSMOLALITY 279 mosm/kg (275-300); CARBON DIOXIDE 30.5 mmol/L (21.0-32.0); CHLORIDE - SERUM 102 mmol/L (98-107); CREATININE - SERUM 0.9 mg/dL (0.6-1.3); GLUCOSE 90 mg/dL (74-106); POTASSIUM - SERUM 4.5 mmol/L (3.5-5.1); SODIUM 140 mmol/L (136-145); UREA NITROGEN 16 mg/dL (7-18); eGFR NON AFRICAN AMERICAN 87 mL/min (90-120)
[2018-07-10 18:45] VITALS: BP 110/57
[2018-07-11 08:00] VITALS: BP 124/69
[2018-07-11 19:30] VITALS: BP 108/59
[2018-07-12 08:00] VITALS: BP 109/55
[2018-07-12 19:30] VITALS: BP 102/55
[2018-07-13 06:06] LABS: BASOPHILS 0.5 % (0-2); EOSINOPHILS 2.4 % (0-7); HEMATOCRIT 38.8 % (42.0-54.0); HEMOGLOBIN 12.7 g/dL (13.5-17.5); IMMATURE GRANULOCYTES 0.3 % (0-5); LYMPHOCYTES 14.2 % (15-50); MCH 32.1 pg (26.0-34.0); MCHC 32.7 g/dL (31.0-37.0); MEAN PLATELET VOLUME 11.9 fL (7.4-10.4); MONOCYTES 9.7 % (2-11); NEUTROPHILS 72.9 % (40-80); PLATELET COUNT 397 10x3/uL (130-400); RBC 3.96 10x6/uL (4.20-6.10); RDW 13.4 % (11.5-14.5); WBC 10.9 10x3/uL (4.8-10.8)
[2018-07-13 06:19] LABS: ANION GAP 11.8 mmol/L (8-16); CARBON DIOXIDE 28.2 mmol/L (21.0-32.0); CREATININE - SERUM 1.1 mg/dL (0.6-1.3)
[2018-07-13 08:22] VITALS: BP 122/66
[2018-07-13] MEDS ORDERED: QUESTRAN PACKET PO (08:33)
[2018-07-13 19:30] VITALS: BP 103/49
[2018-07-14 08:00] VITALS: BP 112/63
== END 2018-07-14 10:15 | disposition home health service (06) | DRG 190 ==
LOC: D.REHAB 19:01
PROVIDERS: ADMIT Emergency Medicine
DX: J44.1 Chronic obstructive pulmonary disease with (acute) exacerbation (principal); K65.8 Other peritonitis; C34.91 Malignant neoplasm of unspecified part of right bronchus or lung; J90 Pleural effusion, not elsewhere classified; K80.10 Calculus of gallbladder with chronic cholecystitis without obstruction; F03.90 Unspecified dementia, unspecified severity, without behavioral disturbance, psychotic disturbance, mood disturbance, and anxiety; Z87.891 Personal history of nicotine dependence; Z72.89 Other problems related to lifestyle; D72.829 Elevated white blood cell count, unspecified; D64.9 Anemia, unspecified; E87.6 Hypokalemia; E03.9 Hypothyroidism, unspecified; I10 Essential (primary) hypertension; N40.0 Benign prostatic hyperplasia without lower urinary tract symptoms; F10.10 Alcohol abuse, uncomplicated; R53.81 Other malaise; I77.819 Aortic ectasia, unspecified site

== ENCOUNTER 2018-09-14 08:13 | Day surgery (SDC) | payer MEDICARE, BC ==
[~2018-09-14] VITALS: Ht 175.3 cm; Wt 55.8 kg
[~2018-09-14 08:13] MED LIST changes: +QUESTRAN PACKET PO
[2018-09-14 08:58] LABS: HEMATOCRIT 41.9 % (42.0-54.0); HEMOGLOBIN 13.6 g/dL (13.5-17.5); MCH 30.2 pg (26.0-34.0); MCHC 32.5 g/dL (31.0-37.0); MCV 93.1 fL (80.0-100.0); MEAN PLATELET VOLUME 10.7 fL (7.4-10.4); RBC 4.5 10x6/uL (4.20-6.10); RDW 13.7 % (11.5-14.5); WBC 4.6 10x3/uL (4.8-10.8)
[2018-09-14 09:00] VITALS: BP 146/48; Ht 175.3 cm; Wt 55.8 kg
[2018-09-14] MEDS ORDERED: HYDROCODON-ACE1 EAC7 PO (13:08)
== END 2018-09-14 14:50 | disposition home or self-care (01) ==
LOC: D.OPS 08:13 → D.PAN 11:30 → D.OPS 14:50
PROVIDERS: Anesthesiology; ATTEND Surgery
DX: C34.90 Malignant neoplasm of unspecified part of unspecified bronchus or lung (principal); Z01.812 Encounter for preprocedural laboratory examination

== ENCOUNTER → 2018-10-07 07:29 | Outpatient (CLI) | payer MEDICARE, BC ==
[2018-09-14 09:00] VITALS: BMI 18.2
[~2018-10-07 07:29] MED LIST changes: +HYDROCODON-ACE1 EAC7 PO
== END | disposition home or self-care (01) ==
LOC: D.CT 07:29
PROVIDERS: ATTEND Internal Medicine Hematology & Oncology
DX: C34.91 Malignant neoplasm of unspecified part of right bronchus or lung (principal); C34.11 Malignant neoplasm of upper lobe, right bronchus or lung; D51.9 Vitamin B12 deficiency anemia, unspecified

== ENCOUNTER → 2018-11-20 08:20 | Outpatient (CLI) | payer MEDICARE, BC ==
[2018-09-14 09:00] VITALS: BMI 18.2
== END | disposition home or self-care (01) ==
LOC: D.CT 08:20
PROVIDERS: ATTEND Internal Medicine Pulmonary Disease
DX: C34.91 Malignant neoplasm of unspecified part of right bronchus or lung (principal); C34.11 Malignant neoplasm of upper lobe, right bronchus or lung; D51.8 Other vitamin B12 deficiency anemias

== ENCOUNTER 2019-04-29 09:13 | Inpatient (IN) | payer MEDICARE, BC ==
[~2019-04-29] VITALS: Ht 175.3 cm; Wt 65.6 kg
[2019-04-29 09:57] LABS: BASOPHILS 0.2 % (0-2); EOSINOPHILS 0.6 % (0-7); HEMATOCRIT 41.7 % (42.0-54.0); HEMOGLOBIN 13.3 g/dL (13.5-17.5); IMMATURE GRANULOCYTES 0.2 % (0-5); LYMPHOCYTES 5.2 % (15-50); MCH 27.4 pg (26.0-34.0); MCHC 31.9 g/dL (31.0-37.0); MCV 85.8 fL (80.0-100.0); MEAN PLATELET VOLUME 10.7 fL (7.4-10.4); MONOCYTES 10.8 % (2-11); RBC 4.86 10x6/uL (4.20-6.10); RDW 16.6 % (11.5-14.5); WBC 10.2 10x3/uL (4.8-10.8)
[2019-04-29 09:58] LABS: PLATELET COUNT 146 10x3/uL (130-400)
[2019-04-29 10:00] VITALS: BP 157/77
[2019-04-29 10:02] LABS: APTT 30.8 SECONDS (22.8-39.4); INR 1.09 (0.85-1.17); PROTIME 13.6 SECONDS (11.6-15.0)
[2019-04-29 10:08] LABS: ALBUMIN 3.3 g/dL (3.4-5.0); ALKALINE PHOSPHATASE 81 U/L (46-116); ALT (SGPT) 11 U/L (10-68); BILIRUBIN - TOTAL 1.37 mg/dL (0.2-1.3); CALC OSMOLALITY 280 mosm/kg (275-300); CALCIUM 8.7 mg/dL (8.5-10.1); CARBON DIOXIDE 25.2 mmol/L (21.0-32.0); CHLORIDE - SERUM 106 mmol/L (98-107); GLUCOSE 103 mg/dL (74-106); POTASSIUM - SERUM 3.9 mmol/L (3.5-5.1); SODIUM 141 mmol/L (136-145); UREA NITROGEN 13 mg/dL (7-18); eGFR NON AFRICAN AMERICAN 76 mL/min (90-120)
--- NOTE | 2019-04-29 10:53 | NUR ---
URINE SENT TO LAB
--- NOTE | 2019-04-29 10:53 | NUR ---
WOUND CARE PERFORMED TO PT'S LEFT ELBOW, DRESSING APPLIED WITH ORDERED TOPICAL OINTMENT.
[2019-04-29 11:00] VITALS: BP 159/74
[2019-04-29 11:03] LABS: APPEARANCE CLEAR (CLEAR); BILIRUBIN NEGATIVE (NEGATIVE); COLOR YELLOW (YELLOW); GLUCOSE NEGATIVE (NEGATIVE); KETONE MODERATE mg/dL (NEGATIVE); NITRITE NEGATIVE (NEGATIVE); PROTEIN TRACE mg/dL (NEGATIVE); UROBILINOGEN NORMAL (NORMAL)
[2019-04-29 11:06] LABS: BACTERIA FEW /hpf (NEGATIVE); EPITHELIAL CELLS OCC /hpf (0-5); MUCUS <1+ /lpf (NONE SEEN); RED CELLS - URINE 0-5 /hpf (0-5); WHITE CELLS - URINE OCC /hpf (NEGATIVE)
--- NOTE | 2019-04-29 13:33 | NUR ---
PT RECIEVED FROM ER. NO SIGNS OF DISTRESS. IV TO RIGHT FORARM PATENT NO REDNESS OR TENDERNESS. DENIES ANY FURTHER NEED AT THIS TIME. CALL LIGHT IN REACH. BED LOW POSITION. FAMILY AT BEDSIDE.
[2019-04-29 15:37] VITALS: BP 173/79; BMI 19.2
[2019-04-29 16:23] VITALS: BP 173/83
[2019-04-29 17:55] LABS: % SATURATION 48 % (15-55); IRON 147 ug/dl (35-150); TOTAL IRON BIND CAPACITY 303 ug/dl (260-445); UNSAT IRON BIND CAPACITY 156 ug/dl (150-375)
[2019-04-29 20:00] VITALS: BP 154/68
[2019-04-30] VITALS: BP 136/64
[2019-04-30 04:00] VITALS: BP 104/85
[2019-04-30 05:44] LABS: BASOPHILS 0.2 % (0-2); EOSINOPHILS 3.4 % (0-7); HEMATOCRIT 38.9 % (42.0-54.0); HEMOGLOBIN 11.9 g/dL (13.5-17.5); IMMATURE GRANULOCYTES 0.1 % (0-5); LYMPHOCYTES 9.2 % (15-50); MCH 26.8 pg (26.0-34.0); MCHC 30.6 g/dL (31.0-37.0); MCV 87.6 fL (80.0-100.0); MEAN PLATELET VOLUME 10.9 fL (7.4-10.4); MONOCYTES 11.5 % (2-11); NEUTROPHILS 75.6 % (40-80); PLATELET COUNT 130 10x3/uL (130-400); RBC 4.44 10x6/uL (4.20-6.10); RDW 17.3 % (11.5-14.5); WBC 8.6 10x3/uL (4.8-10.8)
[2019-04-30 06:11] LABS: ALBUMIN 2.7 g/dL (3.4-5.0); ALKALINE PHOSPHATASE 77 U/L (46-116); ALT (SGPT) 12 U/L (10-68); BILIRUBIN - TOTAL 0.87 mg/dL (0.2-1.3); CALC OSMOLALITY 282 mosm/kg (275-300); CARBON DIOXIDE 31.2 mmol/L (21.0-32.0); CHLORIDE - SERUM 108 mmol/L (98-107); GLUCOSE 90 mg/dL (74-106); POTASSIUM - SERUM 3.9 mmol/L (3.5-5.1); PROTEIN - SERUM 6.1 g/dL (6.4-8.2); SODIUM 142 mmol/L (136-145); UREA NITROGEN 13 mg/dL (7-18); eGFR NON AFRICAN AMERICAN 76 mL/min (90-120)
[2019-04-30 08:35] VITALS: BP 148/86
[2019-04-30 10:02] VITALS: BMI 19.2
[2019-04-30 15:26] VITALS: BP 155/64
--- NOTE | 2019-04-30 16:21 | NUR ---
PT RESTING IN BED.NO SIGNS OF DISTRESS. IV TO LEFT FORARM PATENT NO REDNESS OR TENDERNESS. ON 2L NC. HAS INCISION TO LEFT HIP CLEAN DRY AND INTACT. DENIES ANY FURTHER NEED AT THIS TIME.CALL LIGHT IN REACH. BED LOW POSITION. FAMILY AT BEDSIDE.
--- NOTE | 2019-04-30 18:55 | NUR ---
I have reviewed this patient and I concur with the Shift Assessment completed by the Licensed Practical Nurse today this shift.
[2019-04-30 19:44] VITALS: BP 132/68
--- NOTE | 2019-04-30 21:00 | NUR ---
LETHARGIC, ORIENTED X 4. DRESSING TO LEFT HIP C/D/I. TELEMETRY APPLIED, SCDs APPLIED. IV TO LEFT FOREARM SALINE LOCKED. DENIES PAIN/NEEDS AT THIS TIME, WILL CONTINUE TO MONITOR.
[2019-04-30 23:41] VITALS: BP 150/76
--- NOTE | 2019-05-01 01:19 | NUR ---
I have reviewed this patient and I concur with the Shift Assessment completed by the Licensed Practical Nurse today this shift.
[2019-05-01 05:25] VITALS: BP 147/69
[2019-05-01 06:54] LABS: BASOPHILS 0.3 % (0-2); EOSINOPHILS 0.8 % (0-7); HEMATOCRIT 35.3 % (42.0-54.0); HEMOGLOBIN 10.6 g/dL (13.5-17.5); IMMATURE GRANULOCYTES 0.4 % (0-5); LYMPHOCYTES 4.7 % (15-50); MEAN PLATELET VOLUME 10.9 fL (7.4-10.4); MONOCYTES 12.1 % (2-11); NEUTROPHILS 81.7 % (40-80); PLATELET COUNT 138 10x3/uL (130-400); RBC 3.92 10x6/uL (4.20-6.10)
[2019-05-01 07:05] LABS: MCV 90.1 fL (80.0-100.0); WBC 11.4 10x3/uL (4.8-10.8)
[2019-05-01 07:15] LABS: ALBUMIN 2.6 g/dL (3.4-5.0); ANION GAP 11.8 mmol/L (8-16); BILIRUBIN - TOTAL 0.96 mg/dL (0.2-1.3); CALCIUM 7.8 mg/dL (8.5-10.1); CARBON DIOXIDE 27.2 mmol/L (21.0-32.0); CREATININE - SERUM 1.1 mg/dL (0.6-1.3); PROTEIN - SERUM 5.6 g/dL (6.4-8.2)
--- NOTE | 2019-05-01 07:52 | NUR ---
PT IS RESTING IN BED WITH EYES CLOSED. RESPIRATIONS ARE EVEN AND UNLABORED. PT IS EASILY AROUSED WITH VERBAL STIMULATION. PT IS AAO X 4 UPON AROUSAL. PT IS AT BEDSIDE. PT REPORTS THAT HE IS HAVING A SORE THROAT AND "A LOT OF THICK PHLEGM". DRESSING TO LEFT HIP IS CDI. PT REPORTS THAT HE HAS NO PAIN. PEDAL PULSES ARE PALP. PT DENIES PRESENCE OF N/V/DYSPNEA/SOB AT THIS TIME. BED IS IN THE LOWEST POSITION. CALL LIGHT AND BEDSIDE TABLE ARE WITHIN REACH. SIDE RAILS X 2. PT AND PT DENY FURTHER NEEDS. WILL CONT TO MONITOR.
[2019-05-01 08:40] VITALS: BP 147/78
--- NOTE | 2019-05-01 15:15 | MORECARE ---
CASE MANAGEMENT DISCHARGE SUMMARY PATIENT: RUPERTO MOSER UNIT: [id number] ADM DATE: 04/29/19 AGE: 78 : 39 SEX: M ROOM/BED: D.2213 AUTHOR: SHU ANTHONY PHYSICIAN: REFERRING PHYSICIAN: MENDEL GAXIOLA MD DATE OF SERVICE: 05/01/19 Discharge Plan Patient Name: RUPERTO MOSER [facility] : 1940 Planned Disposition: Inpatient Rehab Anticipated Discharge Date: Discharge Date: Expected LOS: Initial Reviewer: [email or web address] Initial Review Date: 04/29/2019 Generated: 05/01/19 4:14 pm Patient Name: RUPERTO MOSER Page 47815 at 1515 All edits/amendments must be made on the electronic document DICTATION DATE: 05/01/191513 DEAD MAIL CHECKER: EUSEBIO 05/01/191513 RPT#: [id number] OR DATE: STATUS: ADM IN [facility] [address] [place] [address] END OF REPORT
--- NOTE | 2019-05-01 15:22 | MORECARE ---
CASE MANAGEMENT DISCHARGE SUMMARY PATIENT: RUPERTO MOSER UNIT: [id number] ADM DATE: 04/29/19 AGE: 78 : 39 SEX: M ROOM/BED: D.2213 AUTHOR: SHU ANTHONY PHYSICIAN: REFERRING PHYSICIAN: MENDEL GAXIOLA MD DATE OF SERVICE: 05/01/19 Discharge Plan Patient Name: RUPERTO MOSER [facility] [facility] 1940 Planned Disposition: Inpatient Rehab Anticipated Discharge Date: Discharge Date: Expected LOS: Initial Reviewer: [email or web address] Initial Review Date: 04/29/2019 Generated: 05/01/19 4:21 pm DCPIA - Discharge Planning Initial Assessment Updated by [email or web address]: Rhea Mao on 05/01/19 3:16 pm * Is the patient Alert and Oriented? Yes * How many steps to enter\exit or inside your home? 3 SETS * PCP DR ARAUJO * Pharmacy [facility] * Preadmission Environment Home with Family * ADLs Independent * Equipment Walker * Other Equipment PATIENT HAS A WALKER WHICH HE HAS NEVER USED. REC WALKER WHEN HE WAS DISCHARGED FROM [facility] * List name and contact numbers for known caregivers / representatives who currently or will assist patient after discharge: BALDEMAR MOSER- - [phone] * Community resources currently utilized None * Please name any agencies selected above. N/A * Additional services required to return to the preadmission environment? Yes * Can the patient safely return to the preadmission environment? Yes * Has this patient been hospitalized within the prior 30 days at any hospital? No Last DP export: 05/01/19 2:15 Patient Name: RUPERTO MOSER Page 36656 at 1522 All edits/amendments must be made on the electronic document DICTATION DATE: 05/01/191520 SHEAR SCRAPMAN: EUSEBIO 05/01/191520 RPT#: [id number] DC DATE: STATUS: ADM IN [facility] [address] [place] [address] END OF REPORT
--- NOTE | 2019-05-01 15:34 | MORECARE ---
CASE MANAGEMENT DISCHARGE SUMMARY PATIENT: RUPERTO MOSER UNIT: [id number] ADM DATE: 04/29/19 AGE: 78 : 39 SEX: M ROOM/BED: D.2213 AUTHOR: RAJ,DOC PHYSICIAN: REFERRING PHYSICIAN: MENDEL GAXIOLA MD DATE OF SERVICE: 05/01/19 Discharge Plan Patient Name: RUPERTO MOSER Facility: [facility]:[place] : 1940 Planned Disposition: Inpatient Rehab Anticipated Discharge Date: Discharge Date: Expected LOS: Initial Reviewer: [email or web address] Initial Review Date: 04/29/2019 Generated: 05/01/19 4:34 pm Comments DCP- Discharge Planning Updated by [email or web address]: Rhea Mao on 05/01/19 2:[address] CM SPOKE WITH PATIENT'S AT THE BEDSIDE. PATIENT IS POD #1. HE WAS OOB TO THE CHAIR FOR 1 1/2 HOUR TODAY W/ PHYSICAL THERAPY. HE IS STILL A LITTLE "DROWSY" PER HIS SINCE SURGERY. CM EXPALINED MY ROLE AND REQUESTED CONSENT TO PROCEED W/ THE ASSESSMENT. THE CONSENTED. SHE STATES THE DEVELOPER ADVISOR DID DISCUSS INPATIENT REHAB. THE STATES HER WAS AT [facility] PREVIOUSLY AFTER GALL BLADDER. SHE STATES SHE DISCUSSED OPTIONS WITH HER DAUGHTER. THEY DECIDED REHAB WOULD BE A GOOD CHOICE. SHE WOULD LIKE [facility]. CM ADVISED OF [facility] AND [facility]. CM ENCIURAGE THE FAMILY TO VISIT BOTH. PCP- DR VAN TRUJILLO IN [facility] IS THE PHARMACY PROVIDER. DME- PATIENT HAS A WALKER WHICH [facility]. THE PATIENT HAS BEEN TREATED FOR LUNG CANCER W/ CHEMO AND RADIATION THERAPIES. HE IS PRESENTLY RECEIVING IMMUNOTHERAPY WITH DR RIVERA AT [facility]. THE DID ADVISE THEM OF HIS ADMISSION TO [facility] HE HAD AN APPOINTMENT THE DAY OF ADMISSION. CM WILL FOLLOW TO ASSIST W/ DISCHARGE PLANNING. PATIENT IS RESTING. AT THE BEDSIDE. DCPIA - Discharge Planning Initial Assessment Updated by [id number]: Rhea Mao on 05/01/19 3:16 pm * Is the patient Alert and Oriented? Yes * How many steps to enter\\exit or inside your home? 3 SETS * PCP DR ARAUJO * Pharmacy [facility] AT [facility] * Preadmission Environment Home with Family * ADLs Independent * Equipment Walker * Other Equipment PATIENT HAS A WALKER WHICH HE HAS NEVER USED. REC WALKER WHEN HE WAS DISCHARGED FROM [facility] PREVIOUSLY * List name and contact numbers for known caregivers / representatives who currently or will assist patient after discharge: BALDEMAR MOSER- - [phone] * Community resources currently utilized None * Please name any agencies selected above. N/A * Additional services required to return to the preadmission environment? Yes * Can the patient safely return to the preadmission environment? Yes * Has this patient been hospitalized within the prior 30 days at any hospital? No Last DP export: 05/01/19 2:22 Patient Name: RUPERTO MOSER Page [id number] at 1534 All edits/amendments must be made on the electronic document DICTATION DATE: 05/01/191533 BOG CUTTER: EUSEBIO 05/01/191533 RPT#: [id number] DC DATE: STATUS: ADM IN [facility] [address] [place] [address] END OF REPORT
[2019-05-01 16:38] VITALS: BP 123/57
[2019-05-01 19:00] VITALS: BP 132/69
--- NOTE | 2019-05-01 19:21 | NUR ---
BLADDER SCAN SHOWS 340ML FLUID. PT UNABLE TO VOID AFTER MULTIPLE ATTEMPTS. CALLY ND OUT CATH COMPLETED USING STERILE TECHNIQUE. 500ML DARK YELLOW URINE REMOVED FROM BLADDER. PT TOLERATED WELL. FAMILY AT BEDSIDE POST CATHETER.
--- NOTE | 2019-05-01 20:05 | NUR ---
LYING IN BED WITH EYES CLOSED. AWAKENED FOR ASSESSMENT AND V/S. PT IS IRRITABLE AND ARGUMENTATIVE WITH STAFF. STATES, "I JUST WENT TO SLEEP". BED ALARM AND RENETTA ALARM ON FOR PT SAFETY. SCDS IN USE BILAT. DENIES PAIN. DRSG NOTED TO LT HIP IS C/D/I. DRSG NOTED TO LT ELBOW SKIN TEAR. BRUISES NOTED TO BUE. SALINE LOCK NOTED TO LT FOREARM. TELEMETRY SHOWS SR WITH RATE OF 97. NO EDEMA NOTED. NO DISTRESS. CONFUSED. ORIENTED TO SELF ONLY. SR ELEVATED X2. CL IN REACH.
--- NOTE | 2019-05-01 22:45 | NUR ---
RESTING QUIETLY WITH EYES CLOSED. RESP EVEN AND NONLABORED. NO DISTRESS. BED ALARM AND RENETTA ALARM ON. CL IN REACH.
--- NOTE | 2019-05-01 23:35 | NUR ---
MEDICATED WITH TYLENOL FOR ELEVATED TEMP. PT CURSED STAFF. CL IN REACH. RENETTA AND BED ALARM ON FOR PT SAFETY.
[2019-05-02] VITALS (13 sets, daily range): BP systolic 106–140; BP diastolic 48–72
[2019-05-02 05:39] LABS: BASOPHILS 0.2 % (0-2); EOSINOPHILS 0.4 % (0-7); HEMATOCRIT 32.8 % (42.0-54.0); HEMOGLOBIN 9.9 g/dL (13.5-17.5); IMMATURE GRANULOCYTES 0.3 % (0-5); LYMPHOCYTES 4.1 % (15-50); MCH 26.8 pg (26.0-34.0); MCHC 30.2 g/dL (31.0-37.0); MCV 88.9 fL (80.0-100.0); MEAN PLATELET VOLUME 11.3 fL (7.4-10.4); MONOCYTES 17.6 % (2-11); NEUTROPHILS 77.4 % (40-80); PLATELET COUNT 150 10x3/uL (130-400); RBC 3.69 10x6/uL (4.20-6.10); RDW 17.1 % (11.5-14.5); WBC 11.7 10x3/uL (4.8-10.8)
[2019-05-02 05:54] LABS: ALBUMIN 2.3 g/dL (3.4-5.0); ANION GAP 7.5 mmol/L (8-16); BILIRUBIN - TOTAL 0.71 mg/dL (0.2-1.3); CALCIUM 8.2 mg/dL (8.5-10.1); CARBON DIOXIDE 27.2 mmol/L (21.0-32.0); POTASSIUM - SERUM 3.7 mmol/L (3.5-5.1)
[2019-05-02 05:55] LABS: CREATININE - SERUM 1.5 mg/dL (0.6-1.3)
--- NOTE | 2019-05-02 07:15 | NUR ---
PT IS RESTING IN BED WITH EYES CLOSED. RESPIRATIONS ARE EVEN AND UNLABORED. PT IS EASILY AROUSED WITH VERBAL STIMULATION. PT IS PLEASANT UPON AROUSAL BUT IS ORIENTED TO SELF ONLY. PT REORIENTED TO PLACE/TIME/SITUATION. PT DENIES PRESENCE OF PAIN/N/V. DRESSING TO LEFT HIP IS CDI. PT REPOSITIONED IN BED TO RIGHT SIDE. PT QUICKLY RETURNS TO RESTING STATE DURING SHIFT ASSESSMENT BUT IS AROUSABLE WITH PALPATION AND VERBAL STIMULATION. BED ALARM IS ON AND WORKING. BED IS IN THE LOWEST POSITION. CALL LIGHT AND BEDSIDE TABLE ARE WITHIN REACH. SIDE RAILS X 2. WILL CONT TO MONITOR.
--- NOTE | 2019-05-02 07:25 | NUR ---
PT RESTING IN BED WITH EYES CLOSED. RESPIRATIONS ARE 28/MIN HEARTRATE 122 PER NEIGHBORHOOD COORDINATOR TEMPERATURE IS 100.3. WILL ADDRESS TEMP SEE EMAR.
--- NOTE | 2019-05-02 07:33 | NUR ---
RAMY SON PAGED TO NOTIFY OF PT STATE. WILL CONT TO MONITOR.
--- NOTE | 2019-05-02 08:12 | NUR ---
RAPID RESPONSE CALLED FOR PULSE OX OF 78% UNABLE TO INCREASE O2 SAT. O2 VIA NC @ 3L. HEART RATE OF 122. BP OF 135/63 PT IS LETHARGIC BUT AROUSED BY VERBAL STIMULATION.
--- NOTE | 2019-05-02 08:59 | NUR ---
PT TRANSPORTED FROM ROOM VIA BED FOR CT.
[2019-05-02 09:02] LABS: BASOPHILS 0.1 % (0-2); EOSINOPHILS 0.2 % (0-7); HEMATOCRIT 37.7 % (42.0-54.0); HEMOGLOBIN 11.6 g/dL (13.5-17.5); IMMATURE GRANULOCYTES 0.2 % (0-5); LYMPHOCYTES 3.5 % (15-50); MCH 27.6 pg (26.0-34.0); MCHC 30.8 g/dL (31.0-37.0); MCV 89.8 fL (80.0-100.0); MEAN PLATELET VOLUME 11.1 fL (7.4-10.4); MONOCYTES 15.1 % (2-11); NEUTROPHILS 80.9 % (40-80); PLATELET COUNT 146 10x3/uL (130-400); RDW 17.1 % (11.5-14.5); WBC 13.4 10x3/uL (4.8-10.8)
--- NOTE | 2019-05-02 09:16 | NUR ---
SEE RAPID RESPONSE SHEET FOR FURTHER DOCUMENTATION ON RAPID RESPONSE.
[2019-05-02 09:43] LABS: ALBUMIN 2.4 g/dL (3.4-5.0); BILIRUBIN - TOTAL 0.74 mg/dL (0.2-1.3); CALCIUM 8.3 mg/dL (8.5-10.1); CARBON DIOXIDE 24.9 mmol/L (21.0-32.0); CREATININE - SERUM 1.5 mg/dL (0.6-1.3); POTASSIUM - SERUM 3.9 mmol/L (3.5-5.1); PROTEIN - SERUM 6.6 g/dL (6.4-8.2)
--- NOTE | 2019-05-02 11:15 | NUR ---
FEDERICA SORENSON APRN AT BEDSIDE. VERBAL ORDERS RECD TO ADMINISTER 0.4MG OF NARCAN IV NOW X 1. SEE EMAR.
--- NOTE | 2019-05-02 13:01 | NUR ---
Rehab Note- Acute Inpatient Rehab prescreen order received. THe patient had a rapid response this AM. Will follow at this time for when medically stable and possible need for inpatient acute rehab stay. Thank you for this referral! Tawana Lugo RN Clinical Liaison, [facility]
--- NOTE | 2019-05-02 14:47 | NUR ---
REPORT CALLED TO CHRISTINE PAK IN ICU. CHRISTINE PAK TO NOTIFY WHEN ROOM IS READY FOR PT TRANSPORT.
--- NOTE | 2019-05-02 15:15 | NUR ---
PT ARRIVED TO UNIT VIA BED, HOOKED TO MONITOR, ASSESSMENT COMPLETE, FAMILY AT BEDSIDE, UPDATE GIVEN
--- NOTE | 2019-05-02 17:30 | NUR ---
REPOSTIONED FOR COMFORT, NO OTHER NEEDS NOTED
--- NOTE | 2019-05-02 19:00 | NUR ---
AT TIME OF SHIFT CHANGE, PATIENT AGITATED. PATIENT RIPPED OUT IV. BANANA BAG PAUSED DUE TO LOSS OF IV ACCESS. PATIENT REFUSING IV START, REFUSING MEDICATION. PATIENT REFUSED TEMPERATURE TO BE TAKEN AND REQUESTS THAT HIS BE CALLED.
--- NOTE | 2019-05-02 20:35 | NUR ---
AT BEDSIDE. PATIENT CALM.
--- NOTE | 2019-05-02 22:00 | NUR ---
INFUSAPORT TO LT CHEST ACCESSED. PATIENT COOPERATIVE. BANANA BAG RESTARTED. PATIENT RESPOSITIONED, CALL LIGHT WITHIN REACH. BED LOWERED/LOCKED AND SIDE RAILS UP TO PROTECT PATIENT FROM FALL. LIGHT TURNED OFF. WILL CONTINUE TO MONITOR.
[2019-05-03] VITALS (23 sets, daily range): BP systolic 100–152; BP diastolic 53–83
--- NOTE | 2019-05-03 03:17 | NUR ---
PATIENT TORE OFF EKG LEADS AND BEGAN TAKING OFF GOWN STATING "HE WAS GOING HOME" PATIENT WAS REORITENTED. GOWN WAS CHANGED, COMPLETE LINEN CHANGE AND EKG LEADS REPLACED. PATIENT REPOSITIONED BACK IN BED. VSS. BED LOWERED/LOCKED AND CALL LIGHT WITHIN REACH. WILL CONTINUE TO MONITOR. PERINEAL CLEANING GIVEN.
[2019-05-03 05:08] LABS: BASOPHILS 0.1 % (0-2); EOSINOPHILS 2.1 % (0-7); IMMATURE GRANULOCYTES 0.2 % (0-5); MCH 26.7 pg (26.0-34.0); MCHC 30.2 g/dL (31.0-37.0); MCV 88.6 fL (80.0-100.0); MEAN PLATELET VOLUME 10.9 fL (7.4-10.4); MONOCYTES 14.7 % (2-11); NEUTROPHILS 74.9 % (40-80); PLATELET COUNT 125 10x3/uL (130-400)
[2019-05-03 05:23] LABS: HEMATOCRIT 29.5 % (42.0-54.0); HEMOGLOBIN 8.9 g/dL (13.5-17.5); RBC 3.33 10x6/uL (4.20-6.10); WBC 8.1 10x3/uL (4.8-10.8)
[2019-05-03 06:40] LABS: ALBUMIN 2.1 g/dL (3.4-5.0); ANION GAP 10.9 mmol/L (8-16); BILIRUBIN - TOTAL 0.68 mg/dL (0.2-1.3); CALCIUM 8.2 mg/dL (8.5-10.1); CARBON DIOXIDE 27.2 mmol/L (21.0-32.0); CREATININE - SERUM 1.3 mg/dL (0.6-1.3); POTASSIUM - SERUM 4.1 mmol/L (3.5-5.1); PROTEIN - SERUM 5.6 g/dL (6.4-8.2)
--- NOTE | 2019-05-03 07:00 | NUR ---
SHIFT ASSESSMENT COMPLETED. PT CARE ASSUMED, MONITORS ON AND WORKING, PT RESTING IN BED, 02 SAT 95% ON 3L HIGH FLOW NASAL CANULA, PT AWAKENS EASILY TO VERBAL STIMULI, BUT IS DIFFICULT TO HOLD CONVERSATION OR TO GET ANSWERS WHEN QUESTIONED ON TIME PERSON PLACE. LEFT HIP DRESSING CDI. SEE FLOW SHEET FOR FURTHER DETAILS. WILL CONTINUE TO OSBSERVE.
--- NOTE | 2019-05-03 09:00 | NUR ---
PT AT BEDSIDE, PT SITTING UP IN BED, TAKES MEDS PO WITHOUT DIFFICULTY, ASSISTING PT WITH BREAKFAST, MONITORS ON AND WORKING, VITALS STABLE, CALL LIGHT WITHIN REACH, WILL CONTINUE TO OBSERVE.
--- NOTE | 2019-05-03 09:44 | NUR ---
Nutrition follow-up: Pt now in ICU 2/2 rapid response Diet: Regular with aurelia daily Labs reviewed Wt: 141# Will continue to provide food choices and honor food preferences. RDN following.
--- NOTE | 2019-05-03 10:00 | NUR ---
PT BECAME MORE LETHARGIC, 02 SATS DROPPED, DR DICKENS AT BEDSIDE, RT NOTIFIED TO PLACE PT ON BIPAP AND CHECK ABGS AFTER 30 MIN. AT BEDSIDE, UPDATE PROVIDED, CALL LIGHT WITHIN REACH, WILL CONTINUE TO OBSERVE.
--- NOTE | 2019-05-03 11:00 | NUR ---
ABGS REC'D BIPAP SETTINGS CHANGED PER DR DICKENS. MONITORS ON AND WORKING, VITALS STABLE, AT BEDSIDE, UPDATE PROVIDED, SEE FLOW SHEET FOR FURTHER DETAILS. WILL CONTINUE TO OBSERVE.
[2019-05-03 13:15] LABS: HEMATOCRIT 33.1 % (42.0-54.0); HEMOGLOBIN 9.8 g/dL (13.5-17.5)
--- NOTE | 2019-05-03 13:50 | NUR ---
ABGS CALLED BACK TO DR DICKENS, BIPAP SETTINGS CHANGED TO 14/5 AND 60% O2. VITALS STABLE, 02 SAT HAS REMAINED OVER 90% SINCE ON BIPAP. CALL LIGHT WITHIN REACH, WILL CONTINUE TO OBSERVE.
--- NOTE | 2019-05-03 15:00 | NUR ---
FAMILY AT BEDSIDE, PT HAS BECOME INCREASINGLY RESTLESS, BIPAP ON 60%, MONITORS ON AND WORKING, SEE FLOW SHEET FOR FURTHER DETIALS. WILL CONTINUE TO OBSERVE.
--- NOTE | 2019-05-03 17:00 | NUR ---
PRN ATIVAN GIVEN, PT TOLERATED WELL, TREMORS HAVE DECREASED SINCE ATIVAN. FAMILY AT BEDSIDE, MONITORS ON AND WORKING, PT REMAINS ON BIPAP AT THIS TIME, FAMILY UPDATED, COMPLETE LINEN CHANGE AND CHG BATH GIVEN, WILL CONTINUE TO OBSERVE.
--- NOTE | 2019-05-03 19:15 | NUR ---
Received patient resting in bed with eyes closed and family at bedside, assessment completed per flowsheet. Patient lethargic, incomprehensible sounds/does not follow commands. S1/S2 noted NSR on telemetry, rythmic and regular. Breathing is shallow/labored on BiPAP 60% with O2 sat 96%, crackles noted bilateral upper with diminished mid and lower. Abdomen is flat/soft with bowel sounds hypoactive x4, non-tender. Patient incontinent of bladder, yellow urine noted. All pulses palpable with cap refill < 3 sec, skin warm/dry. Repositioned for comfort, no further needs at this time. See flowsheet for details, all VSS and will continue to monitor.
--- NOTE | 2019-05-03 21:00 | NUR ---
Patient resting in bed with eyes closed. Patient moans/incomprehensible sounds, lethargic. Patient awakened to provide HS meds, returned to sleep prior to administration. Medication held due to lethargy, all VSS and will continue to monitor.
--- NOTE | 2019-05-03 23:10 | NUR ---
Reassessment completed per flowsheet, no changes noted from previous assessment. S1/S2 noted NSR on telemetry, rythmic and regular. Breathing is shallow/labored on BiPAP 50% with O2 sat 97%, crackles noted bilateral upper with diminished mid and lower. L hip incision dressing secured, old blood noted under dressing. Repositioned for comfort, no further needs at this time. See flowsheet for details, all VSS and will continue to monitor.
[2019-05-04] VITALS (24 sets, daily range): BP systolic 98–174; BP diastolic 39–901
--- NOTE | 2019-05-04 01:15 | NUR ---
Patient awakened with evident agitation, answered appropriately/followed commands. HR/BP elevated, attempted to calm/discuss status with little success. PRN medication given as ordered, will continue to monitor.
--- NOTE | 2019-05-04 03:05 | NUR ---
Reassessment completed per flowsheet. Patient awakens to voice/follows instructions, answers appropriately. S1/S2 noted NSR on telemetry, rythmic and regular. Breathing is shallow on BiPAP 50%, crackles noted bilateral upper with diminished mid and lower. L hip incision dressing intact, old blood noted under dressing. All pulses palpable with cap refill < 3 sec, skin warm/dry. Repositioned for comfort, denies needs at this time. See flowsheet for details, all VSS and will continue to monitor.
[2019-05-04 04:40] LABS: BASOPHILS 0.1 % (0-2); EOSINOPHILS 0.4 % (0-7); HEMATOCRIT 26.5 % (42.0-54.0); IMMATURE GRANULOCYTES 0.3 % (0-5); LYMPHOCYTES 5.4 % (15-50); MCH 27.1 pg (26.0-34.0); MCHC 29.4 g/dL (31.0-37.0); MEAN PLATELET VOLUME 11.3 fL (7.4-10.4); MONOCYTES 16.6 % (2-11); NEUTROPHILS 77.2 % (40-80); PLATELET COUNT 132 10x3/uL (130-400); RBC 2.88 10x6/uL (4.20-6.10); RDW 16.9 % (11.5-14.5); WBC 7.3 10x3/uL (4.8-10.8)
[2019-05-04 04:44] LABS: HEMOGLOBIN 7.8 g/dL (13.5-17.5)
[2019-05-04 05:01] LABS: ALBUMIN 1.9 g/dL (3.4-5.0); ANION GAP 8.7 mmol/L (8-16); BILIRUBIN - TOTAL 0.54 mg/dL (0.2-1.3); CALCIUM 7.8 mg/dL (8.5-10.1); CARBON DIOXIDE 28.6 mmol/L (21.0-32.0); CREATININE - SERUM 1.1 mg/dL (0.6-1.3); POTASSIUM - SERUM 4.3 mmol/L (3.5-5.1); PROTEIN - SERUM 5.2 g/dL (6.4-8.2); VANCOMYCIN - RANDOM 16.9 ug/mL (10.0-20.0)
--- NOTE | 2019-05-04 06:13 | NUR ---
Patient awakened to stimuli and swallowed medication without observed difficulty, returned to sleep quickly. Will continue to monitor.
--- NOTE | 2019-05-04 07:00 | NUR ---
patient sleeping. report recieved. will continue to monitor patient. see assessment and adl
--- NOTE | 2019-05-04 09:40 | NUR ---
TO CT FOR STAT CT SCAN
--- NOTE | 2019-05-04 10:13 | NUR ---
blood transfusing. see blood sheet
--- NOTE | 2019-05-04 12:55 | NUR ---
very difficult to get patient to stay awake long enough to take medications. only metoprolol and eliquis were given long enough for him to stay awake. patient does awaken when sternal rubbed.
--- NOTE | 2019-05-04 14:43 | CN ---
PATIENT NAME:RUPERTO HUGGINS MEDICAL RECORD: [id number] : 38 LOCATION:[id number] ADMIT DATE: 04/29/19 ACCOUNT: [id number] CONSULTING PHYSICIAN: LUIS ISRAEL MD REFERRING PHYSICIAN: MENDEL GAXIOLA MD DATE OF CONSULTATION: 05/02/2019 CONSULT REQUESTING PHYSICIAN: Maddi Lal MD REASON FOR CONSULTATION: Acute mental status changes, pneumonia right lower lobe, DTs. HISTORY OF PRESENT ILLNESS: Mr. Huggins is a 78-year-old gentleman, very well known to me. He has a history of CA of the lung, for which he is getting chemotherapy with Dr. Fraire. The patient was admitted on 29 of April with left hip fracture. He underwent fixation by Dr. Alcala. Since yesterday, the patient is unresponsive. He was on Librium. He is sleeping constantly. The history was taken mainly by talking to Dr. Lal and the patient's . REVIEW OF SYSTEMS: As in history of present illness. PAST MEDICAL HISTORY: 1. CA of the lung. 2. COPD. 3. Chronic hypoxic respiratory failure. 4. Alcoholism. 5. BPH. PAST SURGICAL HISTORY: He has a back surgery. Now, he is status post left ORIF. ALLERGIES: HE IS ALLERGIC TO SULFA. MEDICATIONS: [employer] is reviewed. PERSONAL AND SOCIAL HISTORY: The patient is I believe still an everyday smoker. He is known drinker. FAMILY HISTORY: Noncontributory. PHYSICAL EXAMINATION: GENERAL: Now, the patient is lying comfortably here. The patient is unresponsive. VITAL SIGNS: The blood pressure is 130/61, pulse is 100, respiration is 20, temperature is 100 to 101.4. HEENT: Conjunctivae are pink. Sclerae not icteric. NECK: Supple, no JVD. CHEST: The chest excursion minimal on both sides. There are crackles at the right base. HEART: Rhythm regular, normal sound, no murmur. ABDOMEN: Soft. Bowel sounds present. No hepatosplenomegaly. RECTAL: Deferred. EXTREMITIES: No cyanosis, no clubbing, no pedal edema. CENTRAL NERVOUS SYSTEM: The patient is unresponsive. The pupils equal, reactive to light. CONSULT REPORT [id number] RUPERTO HUGGINS RADIOGRAPHIC DATA: CT scan of the head: There is atrophy. No chronic small vessel ischemic disease. No acute finding. Chest radiograph: Consolidation of the right lower lobe. LABORATORY DATA: The ammonia level is 17. CBC: The WBC is 13.4, hemoglobin 11.6, hematocrit is 37.7, the platelet count 146. Chemistry: Sodium 140, potassium 3.9, BUN is 27, creatinine 1.5. The ammonia level is 17. ABG early this morning: The pH is 7.36, pCO2 of 45.2, the pO2 of 55, bicarb of 25.5. IMPRESSION: 1. Wzqfa-pg-vcjfvqa hypoxic respiratory failure. 2. Acute mental status changes, which is most likely secondary to delirium tremens, possible Librium on board. 3. Pneumonia right lower lobe, most likely hospital-acquired pneumonia. 4. Delirium tremens. 5. Leukocytosis. 6. Status post left ORIF. 7. Alcoholism. 8. Chronic obstructive pulmonary disease. 9. Cancer of the lung, followed by Dr. Fraire. RECOMMENDATION: 1. We will transfer the patient to the ICU. 2. Continue supplemental oxygen. 3. Albuterol-ipratropium nebulizer. 4. Brovana-budesonide nebulizer. 5. Whiskey t.i.d. when the patient wakes up. 6. Hold Librium. 7. Repeat the ABG. 8. Vancomycin and Merrem IV. 9. Follow up labs and chest radiograph. 10. Discussed with Dr. Lal. The critical care time is [address] Lal, thank you for involving me in the care of Mr. Huggins. TRANSINT:[id number] Voice Confirmation ID: [id number] DOCUMENT ID: [id number] LUIS ISRAEL MD at 1443 CC: [id number] DICTATION DATE: 05/02/19 1356 AVIATION MEDICINE SPECIALIST: 05/02/19 1432 ADM IN [facility] [address] [place] [address]
--- NOTE | 2019-05-04 15:50 | NUR ---
L HIP DRESSING CHANGED ACCORDING TO ORDERS
--- NOTE | 2019-05-04 16:17 | NUR ---
PATIENT MORE ALERT THIS AFTERNOON. ABLE TO ANSWER QUESTIONS. CONFUSED TO TIME AND PLACE. PATIENT IS AWARE THAT HE BROKE HIS HIP AND IS IN THE HOSPITAL. OXYGEN TURNED DOWN TO [address] DICKENS. NO DISTRESS. TOLEARTING WELL. 1 UNIT INFUSED. TOLERATED WELL SEE BLOOD SHEET FOR VS. ORAL CARE PROVIDED IN AM. NO BM THIS SHIFT. CHANGED HIS DRESSING TO HIS L HIP. YELLOW EXUDATE WAS SEEN. LINEN CHANGE AND CHG BATH.
--- NOTE | 2019-05-04 19:10 | NUR ---
Received patient resting in bed with eyes closed and family at bedside, assessment completed per flowsheet. Patient disoriented to time/place, follows instructions. S1/S2 noted NSR on telemetry, rythmic and regular. Breathing is shallow on 3L via HFNC with O2 sat 98%, lung sounds clear upper with expiratory wheeze noted mid and diminished lower. Abdomen is flat/soft with bowel sounds active x4, non-tender. L elbow/R forearm skin tear with dressing CDI, L hip incision with dressing intact. All pulses palpable with cap refill < 3 sec, skin warm/dry. Repositioned for comfort, partial linen change performed. No further needs at this time, see flowsheet for details. All VSS and will continue to monitor.
--- NOTE | 2019-05-04 21:00 | NUR ---
Patient laying in bed with eyes closed, slight agitation/fidgeting noted. HS meds given with applesauce, no difficulties noted swallowing. Family at bedside for visitation, discussed current status with all questions answered to satisfaction. All VSS and will continue to monitor.
--- NOTE | 2019-05-04 23:10 | NUR ---
Reassessment completed per flowsheet, no changes noted from previous assessment. Patient disoriented to time/place, follows commands weakly. S1/S2 noted NSR on telemetry, rythmic and regular. Breathing is shallow on 3L via NC with O2 sat 98%, lung sounds clear bilateral upper with exspiratory wheeze mid and diminished lower. L hip incision dressing intact, small drainage noted. All pulses palpable with cap refill < 3 sec, skin warm/dry. Repositioned for comfort, see flowsheet for details. All VSS and will continue to monitor.
[2019-05-05] VITALS (24 sets, daily range): BP systolic 101–187; BP diastolic 63–90
--- NOTE | 2019-05-05 01:00 | NUR ---
Patient sleeping in bed with eyes closed, no s/s of distress at this time. Repositioned for comfort, no further needs and will continue to monitor.
--- NOTE | 2019-05-05 03:10 | NUR ---
Reassessment completed per flowsheet, no changes noted from previous assessment. S1/S2 noted NSR on telemetry, rythmic and regular. Breathing is shallow on 3L via HFNC with O2 sat 98%, lung sounds clear bilateral upper with expiratory wheeze mid and diminished lower. All pulses palpable with cap refill < 3 sec, skin warm/dry. Repositioned for comfort, no further needs at this time. See flowsheet for details, all VSS and will continue to monitor.
--- NOTE | 2019-05-05 05:00 | NUR ---
Patient pulled off leads/nasal cannula, new leads connected with O2 replaced. Repositioned for comfort, no further needs and will continue to monitor.
[2019-05-05 05:03] LABS: BASOPHILS 0.5 % (0-2); EOSINOPHILS 2.1 % (0-7); IMMATURE GRANULOCYTES 0.2 % (0-5); LYMPHOCYTES 8.7 % (15-50); MCH 27.2 pg (26.0-34.0); MCHC 30.1 g/dL (31.0-37.0); MCV 90.3 fL (80.0-100.0); MEAN PLATELET VOLUME 10.8 fL (7.4-10.4); MONOCYTES 11.7 % (2-11); NEUTROPHILS 76.8 % (40-80); RDW 17.2 % (11.5-14.5); WBC 6.3 10x3/uL (4.8-10.8)
[2019-05-05 05:17] LABS: ALBUMIN 2.2 g/dL (3.4-5.0); ANION GAP 10.8 mmol/L (8-16); BILIRUBIN - TOTAL 0.72 mg/dL (0.2-1.3); CALCIUM 8.3 mg/dL (8.5-10.1); CARBON DIOXIDE 28.2 mmol/L (21.0-32.0); CREATININE - SERUM 1.1 mg/dL (0.6-1.3)
[2019-05-05 05:37] LABS: HEMATOCRIT 34.6 % (42.0-54.0); HEMOGLOBIN 10.4 g/dL (13.5-17.5); PLATELET COUNT 173 10x3/uL (130-400); RBC 3.83 10x6/uL (4.20-6.10)
--- NOTE | 2019-05-05 07:54 | NUR ---
Nutrition follow-up: Diet: Regular puree with nectar thick liquids PO intake very poor at this time due to lethargy Wt: 148# Labs reviewed If po intake remains poor will need to begin TF via NGT vs PEG tube placement if medically feasible. RDN following.
--- NOTE | 2019-05-05 08:00 | NUR ---
PATIENT INCONTINENT OF URINE, LINENS CHANGED AND PATIENT CLEANED. VSS. REPOSITIONED IN BED AND TURNED. DRESSING TO LEFT HIP CHANGED, NOTED SEROUS DRAINAGE, TIAGO INTACT AND INCISIONS APPROXIMATED.
--- NOTE | 2019-05-05 08:31 | NUR ---
PATIENT WITH INCREASED TREMORS AND RESTLESSNESS, ORIENTED TO SELF, STATES IN [place] AND YEAR IS 2002, AT BEDSIDE. GIVEN PRN ATIVAN 2 MG IVP FOR WITHDRAWLS. VSS.
--- NOTE | 2019-05-05 09:00 | NUR ---
MORNING MEDS GIVEN IN APPLESAUCE, CRUSHED. PATIENT WITH COUGHING AND S/S OF ASPIRATIONS. WILL HOLD PO MEDS UNTIL REPEAT SWALLOW EVALUATION IS DONE. DR. DICKENS NOTIFIED. PATIENT TURNED AND REPOSITIONED IN BED.
--- NOTE | 2019-05-05 10:16 | NUR ---
PATIENT RESTING VICKI GUNTER.
--- NOTE | 2019-05-05 11:05 | NUR ---
REASSESSMENT COMPLETED, RR SHALLOW AT 30/MIN, CLEAR BUT DIMINISHED IN BASES, SPO2 - 100% ON 3 LPM VIA NC. HR 78 NSR ON CM. TURNED AND REPOSITIONED. RESTING QUIELTY, REMAINS CONFUSED. REORIENTED.
--- NOTE | 2019-05-05 11:43 | NUR ---
D5W STARTED AT 75 ML/HR PER DR. DICKENS FOR ELEVATED NA AND CL. PATIENT RESTING QUIETLY, VSS.
--- NOTE | 2019-05-05 13:16 | NUR ---
PATIENT TURNED AND REPOSITIONED IN BED. VSS. AT BEDSIDE.
--- NOTE | 2019-05-05 13:43 | NUR ---
DRESSING TO BILATERAL ARMS CHANGED, ADAPTIC AND KERLIX TO SKIN TEARS. SPEECH THERAPY IN ROOM FOR SWALLOW REEVAL DUE TO MENTAL STATUS AND S/S OF ASPIRATION WITH MORNING MEDS.
--- NOTE | 2019-05-05 14:12 | NUR ---
PATIENT INCONTINENT LARGE AMOUNT OF URINE, CLEANED AND LINENS CHANGED. DRESSING TO LEFT HIP CHANGED, SEROUS DRAINAGE NOTED.
--- NOTE | 2019-05-05 15:18 | NUR ---
REASSESSMENT COMPLETE VSS. AT BEDSIDE. PATIENT TURNED AND REPOSITIONED.
--- NOTE | 2019-05-05 15:52 | NUR ---
PATIENT RESTING QUIETLY, VSS. AT BEDSIDE.
--- NOTE | 2019-05-05 17:01 | NUR ---
PATIENT TURNED AND REPOSITIONED IN BED. RESTING QUIETLY, VSS.
--- NOTE | 2019-05-05 17:24 | NUR ---
PATIENT INCONTINENT OF URINE, CLEANED AND CLEAN LINENS PLACED. TURNED AND REPOSTIONED.
--- NOTE | 2019-05-05 19:30 | NUR ---
PT AWAKE, CONFUSED, PULLS N/C OFF @ TIMES, RESTLESS, EXP WHEEZES NOTED, O2 @ 3L VIA N/C, LEFT PORT WITH D5W @ 75 CC/HR, INCONTINENT OF URINE, WILL CONT TO MONITOR
--- NOTE | 2019-05-05 21:30 | NUR ---
PT REMAINS CONFUSED, TAKES PO MEDS WITH APPLESAUCE, THICKENED LIQUIDS, COUGHING NOTES AFTER TAKING THICKENED FLUIDS, WILL CONT TO MONITOR
--- NOTE | 2019-05-05 23:30 | NUR ---
PT RESTING QUIETLY, SPO2 @ 100%, VITALS STABLE
[2019-05-06] VITALS (24 sets, daily range): BP systolic 134–189; BP diastolic 62–116
--- NOTE | 2019-05-06 03:33 | NUR ---
PT BATHED PER STAFF, LETHATGIC, ANSWERS TO NAME, INC OF URINE, NO CHANGE IN STATUS
--- NOTE | 2019-05-06 05:30 | NUR ---
PT AWAKE @ TIMES, MORE ALERT THIS AM, ORAL CARE DONE, PT ANSWERS QUESTIONS, WILL CONT TO MONITOR
[2019-05-06 07:11] LABS: CALCIUM 8.4 mg/dL (8.5-10.1); CHLORIDE - SERUM 114 mmol/L (98-107); GLUCOSE 107 mg/dL (74-106); SODIUM 150 mmol/L (136-145); eGFR NON AFRICAN AMERICAN 76 mL/min (90-120)
[2019-05-06 07:12] LABS: CALC OSMOLALITY 300 mosm/kg (275-300); POTASSIUM - SERUM 3.3 mmol/L (3.5-5.1); UREA NITROGEN 20 mg/dL (7-18)
[2019-05-06 07:24] LABS: HEMATOCRIT 35.4 % (42.0-54.0); HEMOGLOBIN 10.8 g/dL (13.5-17.5); MCH 27.3 pg (26.0-34.0); MCHC 30.5 g/dL (31.0-37.0); MCV 89.6 fL (80.0-100.0); MEAN PLATELET VOLUME 10.5 fL (7.4-10.4); PLATELET COUNT 191 10x3/uL (130-400); RBC 3.95 10x6/uL (4.20-6.10); RDW 16.7 % (11.5-14.5); WBC 7.1 10x3/uL (4.8-10.8)
[2019-05-06 07:45] LABS: IMMATURE GRANULOCYTES 0.4 % (0-5)
--- NOTE | 2019-05-06 09:00 | NUR ---
MIRALAX GIVEN THIS AM. NO BM AT THIS POINT. TALKED WITH ALEJANDRA PAK ABOUT OCCULT BLOOD CULTURE.
--- NOTE | 2019-05-06 09:17 | NUR ---
Nutrition follow-up: Diet: Regular puree with nectar thick liquids Pt ate 2 small bites of breakfast. Discussed NGT vs PEG tube placement with , nurse Due to pt with poor po intake strongly recommend NGT placement and Osmolite 1.0 yadira started @ 25 ml/hr with increase to goal rate of 50 ml/hr. RDN following.
--- NOTE | 2019-05-06 09:33 | NUR ---
SPOKE TO DR SUMMERS ABOUT BP AND CLONIDINE ORDER. STATED TO START PRECIDEX
[2019-05-06 10:13] LABS: LYMPHOCYTES 15 % (15-50); NEUTROPHILS 60 % (40-80)
[2019-05-06 10:14] LABS: EOSINOPHILS 4 % (0-7); MONOCYTES 18 % (2-11); PLATELET ESTIMATE NORMAL
--- NOTE | 2019-05-06 10:38 | NUR ---
LINEN CHANGE AND CHG BATH DONE. DRESSING CHANGE
--- NOTE | 2019-05-06 10:45 | NUR ---
BEDSIDE REPORT RECEIVED. ST AT BEDSIDE. ST ENCOURAGES NG TUBE PLACEMENT. WILL CONT TO MONITOR. NO NEEDS OR DISTRESS NOTED AT THIS TIME.
--- NOTE | 2019-05-06 11:00 | NUR ---
PT IN BED RESTING WITH EYES CLOSED. PT WILL NOT LET GO OF SIDE RAIL, ENCOURAGED PT TO RELAX HAND AND ARM BUT PT INSISTED. NO NEEDS OR DISTRESS NOTED AT THIS TIME. VSS. WILL CONT TO MONITOR.
--- NOTE | 2019-05-06 11:42 | NUR ---
AT BEDSIDE. NO NEW ORDERS. WILL CONT TO MONITOR.
--- NOTE | 2019-05-06 12:00 | NUR ---
PT AT BEDSIDE. PT RESTING WITH EYES CLOSED. NO NEEDS OR DISTRESS NOTED AT THIS TIME. VSS. WILL CONT TO MONITOR.
--- NOTE | 2019-05-06 13:00 | NUR ---
PT AT BEDSIDE, ENCOURAGING PT TO REMAIN CALM. VSS. NO NEEDS OR DISTRESS NOTED AT THIS TIME. WILL CONT TO MONITOR.
--- NOTE | 2019-05-06 15:00 | NUR ---
PT SITTING IN CHAIR. ASSISTED PT TO BSC, NO BM NOTED. FRESH BED LINEN. NO NEEDS OR DISTRESS NOTED AT THIS TIME. VSS. WILL CONT TO MONITOR.
--- NOTE | 2019-05-06 17:00 | NUR ---
PT AT BEDSIDE. PT RESTING IN BED WITH EYES CLOSED. NO NEEDS OR DISTRESS NOTED AT THIS TIME. VSS. WILL CONT TO MONITOR.
--- NOTE | 2019-05-06 19:15 | NUR ---
Received patient resting in bed with eyes closed, assessment completed per flowsheet. Patient disoriented to time/place/situation, follows instructions. S1/S2 noted NSR on telemetry, rythmic and regular. Breathing is shallow on 5L via NC with O2 sat 100%, expiratory wheeze noted bilateral upper and mid with diminished lower. Abdomen is flat/soft with bowel sounds hypoactive x4, non-tender. All pulses palpable with cap refill < 3 sec, skin warm. Oral care provided, repositioned for comfort. No further needs at this time, see flowsheet for details. All VSS and will continue to monitor.
--- NOTE | 2019-05-06 21:00 | NUR ---
Patient sleeping in bed with eyes closed, HS meds given with no difficulty swallowing noted. Repositioned for comfort, no further needs and will continue to monitor.
--- NOTE | 2019-05-06 23:15 | NUR ---
Reassessment completed per flowsheet, no changes noted from previous assessment. S1/S2 noted NSR on telemetry, rythmic and regular. Breathing is shallow on 3L via HFNC with O2 sat 100%, slight expiratory wheeze ntoed bilateral upper and mid with diminished lower. All pulses palpable with cap refill < 3 sec, skin warm/dry. Repositioned for comfort, no further needs at this time. See flowsheet for details, all VSS and will continue to monitor.
[2019-05-07] VITALS (25 sets, daily range): BP systolic 117–169; BP diastolic 59–111
--- NOTE | 2019-05-07 01:00 | NUR ---
Patient sleeping in bed with eyes closed, no s/s of distress at this time. Repositioned for comfort, no further needs and will continue to monitor.
--- NOTE | 2019-05-07 03:10 | NUR ---
Reassessment completed per flowsheet, no changes noted from previous assessment. S1/S2 noted NSR on telemetry, rythmic and regular. Breathing is shallow on 2L via NC with O2 sat 97%, slight expiratory wheeze noted bilateral upper and mid with diminished lower. L hip incision dressing CDI, no bruising/bleeding noted. All pulses palpable with cap refill < 3 sec, skin warm/dry. Repositioned for comfort, see flowsheet for details. All VSS and will continue to monitor.
--- NOTE | 2019-05-07 05:00 | NUR ---
AM labs collected without difficulty, patient laying in bed with eyes open. Disoriented to time/place/situation, attempted reorientation with little success. Repositioned for comfort, no further needs and will continue to monitor.
[2019-05-07 05:18] LABS: BASOPHILS 0.4 % (0-2); EOSINOPHILS 4.9 % (0-7); HEMATOCRIT 35.3 % (42.0-54.0); HEMOGLOBIN 10.8 g/dL (13.5-17.5); IMMATURE GRANULOCYTES 0.8 % (0-5); LYMPHOCYTES 5.9 % (15-50); MCHC 30.6 g/dL (31.0-37.0); MCV 88.3 fL (80.0-100.0); MEAN PLATELET VOLUME 10.4 fL (7.4-10.4); MONOCYTES 15.8 % (2-11); NEUTROPHILS 72.2 % (40-80); PLATELET COUNT 177 10x3/uL (130-400); RDW 16.2 % (11.5-14.5); WBC 7.4 10x3/uL (4.8-10.8)
[2019-05-07 05:38] LABS: CALC OSMOLALITY 284 mosm/kg (275-300); CALCIUM 7.9 mg/dL (8.5-10.1); CARBON DIOXIDE 30.5 mmol/L (21.0-32.0); CHLORIDE - SERUM 108 mmol/L (98-107); CREATININE - SERUM 0.8 mg/dL (0.6-1.3); GLUCOSE 115 mg/dL (74-106); POTASSIUM - SERUM 3.4 mmol/L (3.5-5.1); SODIUM 142 mmol/L (136-145); UREA NITROGEN 16 mg/dL (7-18); eGFR NON AFRICAN AMERICAN > 90 mL/min (90-120)
--- NOTE | 2019-05-07 07:00 | NUR ---
BEDSIDE REPORT RECEIEVED. ASSISTED WITH COMPLETE LINEN CHANGE. ASSESSMENT COMPLETED PER FLOWSHEET, SEE FLOWSHEET FOR INFORMATION. NO NEEDS OR DISTRESS NOTED AT THIS TIME. VSS. WILL CONT TO MONITOR.
--- NOTE | 2019-05-07 08:00 | NUR ---
PCT FED PT BREAKFAST. PT ATE 25% OF BREAKFAST WITH SOME MEDICATIONS CRUSHED. PT AT BEDSIDE. NO NEEDS OR DISTRESS NOTED AT THIS TIME. WILL CONT TO MONITOR.
--- NOTE | 2019-05-07 09:00 | NUR ---
PT AT BEDSIDE, NO NEEDS OR DISTRESS NOTED AT THIS TIME. VSS. WILL CONT TO MONITOR. ORAL CARE GIVEN.
--- NOTE | 2019-05-07 11:00 | NUR ---
RT AT BEDSIDE ACQUIRING ABG. NO NEEDS NOTED AT THIS TIME. VSS. WILL CONT TO MONITOR. REASSESSMENT COMPLETED PER FLOWSHEET, SEE FLOWSHEET FOR INFORMATION.
--- NOTE | 2019-05-07 13:00 | NUR ---
1300 MEDICATION GIVEN. NO NEEDS OR DISTRESS NOTED AT THIS TIME. VSS. WILL CONT TO MONITOR.
--- NOTE | 2019-05-07 13:30 | NUR ---
CHANGED DRESSINGS ON BILATERAL ARM SKIN TEARS. DRY BLOOD NOTED ON OLD DRESSING. NO DRAINAGE WHILE CHANGING DRESSINGS. DRESSING CDI. NO NEEDS OR DISTRESS NOTED AT THIS TIME. VSS. WILL CONT TO MONITOR.
--- NOTE | 2019-05-07 15:00 | NUR ---
PT AT BEDSIDE. ENCOURAGING PT TO STAY IN BED AND REMAIN CALM. NO NEEDS NOTED AT THIS TIME. WILL CONT TO MONITOR.
--- NOTE | 2019-05-07 17:00 | NUR ---
REPLACED LEFT HIP DRESSING. YELLOW DRAINAGE SATURATED DRESSING AND PAD UNDERNEATH HIP. NO NEEDS OR DISTRESS NOTED AT THIS TIME. WILL CONT TO MONITOR.
--- NOTE | 2019-05-07 19:00 | NUR ---
BEDSIDE SHIFT REPORT RECEIVED - PATIENT ASLEEP, ROUSES TO VOICE, HARD OF HEARING, DRIFTS BACK TO SLEEP DURING CONVERSATION CONFUSED AND LETHARGIC WITH GARBLED SPEECH, PATIENT BECOMES IRRITATED WITH ORIENTATION QUESTIONS, VSS - IV DRIPS CHECKED CHART CHECKED. CPOC
--- NOTE | 2019-05-07 19:05 | MORECARE ---
CASE MANAGEMENT DISCHARGE SUMMARY PATIENT: RUPERTO MOSER UNIT: [id number] ADM DATE: 04/29/19 AGE: 78 : 39 SEX: M ROOM/BED: D.2306 AUTHOR: RAJDOC PHYSICIAN: REFERRING PHYSICIAN: MENDEL GAXIOLA MD DATE OF SERVICE: 05/07/19 Discharge Plan Patient Name: RUPERTO MOSER Facility: [facility]:[place] : 1940 Planned Disposition: Inpatient Rehab Anticipated Discharge Date: Discharge Date: Expected LOS: Initial Reviewer: [email or web address] Initial Review Date: 04/29/2019 Generated: 05/07/19 8:05 pm Comments DCP- Discharge Planning Updated by [email or web address]: Kristine Villalobos on 05/07/19 5:[address] Physical Therapist stated that patient will need rehab v/s SNF upon discharge. depending on mental status at that time. CM will continue to follow and assist as needed with discharge planning / needs. DCP- Discharge Planning Updated by [email or web address]: Rhea Mao on 05/01/19 2:[address] CM SPOKE WITH PATIENT'S AT THE BEDSIDE. PATIENT IS POD #1. HE WAS OOB TO THE CHAIR FOR 1 1/2 HOUR TODAY W/ PHYSICAL THERAPY. HE IS STILL A LITTLE "DROWSY" PER HIS SINCE SURGERY. CM EXPALINED MY ROLE AND REQUESTED CONSENT TO PROCEED W/ THE ASSESSMENT. THE CONSENTED. SHE STATES THE ANDROID PROGRAMMER DID DISCUSS INPATIENT REHAB. THE STATES HER WAS AT [facility] PREVIOUSLY AFTER GALL BLADDER. SHE STATES SHE DISCUSSED OPTIONS WITH HER DAUGHTER. THEY DECIDED REHAB WOULD BE A GOOD CHOICE. SHE WOULD LIKE [facility]. CM ADVISED OF [facility] AND [facility]. CM ENCIURAGE THE FAMILY TO VISIT BOTH. PCP- DR VAN TRUJILLO IN [facility] IS THE PHARMACY PROVIDER. DME- PATIENT HAS A WALKER WHICH HEHAS NEVER USED. THE PATIENT HAS BEEN TREATED FOR LUNG CANCER W/ CHEMO AND RADIATION THERAPIES. HE IS PRESENTLY RECEIVING IMMUNOTHERAPY WITH DR RIVERA AT [facility]. THE DID ADVISE THEM OF HIS ADMISSION TO [facility] HE HAD AN APPOINTMENT THE DAY OF ADMISSION. CM WILL FOLLOW TO ASSIST W/ DISCHARGE PLANNING. PATIENT IS RESTING. AT THE BEDSIDE. DCPIA - Discharge Planning Initial Assessment Updated by [email or web address]: Rhea Mao on 05/01/19 3:16 pm * Is the patient Alert and Oriented? Yes * How many steps to enter\\exit or inside your home? 3 SETS * PCP DR ARAUJO * Pharmacy [facility] * Preadmission Environment Home with Family * ADLs Independent * Equipment Walker * Other Equipment PATIENT HAS A WALKER WHICH HE HAS NEVER USED. REC WALKER WHEN HE WAS DISCHARGED FROM [facility] PREVIOUSLY * List name and contact numbers for known caregivers / representatives who currently or will assist patient after discharge: BALDEMAR MOSER- - [phone] * Community resources currently utilized None * Please name any agencies selected above. N/A * Additional services required to return to the preadmission environment? Yes * Can the patient safely return to the preadmission environment? Yes * Has this patient been hospitalized within the prior 30 days at any hospital? No Last DP export: 05/01/19 2:34 Patient Name: RUPERTO MOSER Page [id number] at 1905 All edits/amendments must be made on the electronic document DICTATION DATE: 05/07/191904 COOK MESS: EUSEBIO 05/07/191904 RPT#: [id number] DC DATE: STATUS: ADM IN [facility] [address] [place] [address] END OF REPORT
--- NOTE | 2019-05-07 20:40 | NUR ---
PT RECEIVED HS MEDS, IRRITATED ABOUT BEING WOKEN UP, TOLERATED WELL
--- NOTE | 2019-05-07 23:05 | NUR ---
REASSESSMENT COMPLETED SEE FLOWSHEET
[2019-05-08] VITALS (24 sets, daily range): BP systolic 98–164; BP diastolic 54–88; Ht 175.3 cm; Wt 65.6 kg
--- NOTE | 2019-05-08 00:45 | NUR ---
PATIENT O2 SATURATION DROPPING BELOW 92% AT THIS TIME - 2L NC APPLIED TO PATIENT, O2 SATURATION UP TO 97%
--- NOTE | 2019-05-08 03:15 | NUR ---
REASSESSMENT COMPLETED SEE FLOWSHEET
[2019-05-08 05:31] LABS: BASOPHILS 0.6 % (0-2); EOSINOPHILS 3.7 % (0-7); IMMATURE GRANULOCYTES 0.9 % (0-5); LYMPHOCYTES 7.3 % (15-50); MCH 27.2 pg (26.0-34.0); MCHC 31.3 g/dL (31.0-37.0); MCV 87.2 fL (80.0-100.0); MEAN PLATELET VOLUME 10.3 fL (7.4-10.4); MONOCYTES 12.8 % (2-11); NEUTROPHILS 74.7 % (40-80); PLATELET COUNT 166 10x3/uL (130-400); RBC 3.67 10x6/uL (4.20-6.10); WBC 6.7 10x3/uL (4.8-10.8)
--- NOTE | 2019-05-08 05:45 | NUR ---
PARTIAL LINEN CHANGE AND COMPLETE HIBICLEANSE BATH RECEIVED AT THIS TIME, PATIENT INCONTINENT OF URINE. DRESSING CHANGE COMPLETED TO LEFT HIP, TIAGO CLEAN AND WELL APPROXIMATED, NO REDNESS OR DRAINAGE AT WOUND SITE. YELLOW DRAINAGE SATURATED DRESSING AND UNDERPAD PRIOR TO CHANGING. PATIENT TOLERATED ACTIVITY FAIR. VSS CPOC
[2019-05-08 05:54] LABS: CALC OSMOLALITY 277 mosm/kg (275-300); CALCIUM 7.7 mg/dL (8.5-10.1); CARBON DIOXIDE 30.9 mmol/L (21.0-32.0); CHLORIDE - SERUM 106 mmol/L (98-107); CREATININE - SERUM 0.8 mg/dL (0.6-1.3); GLUCOSE 99 mg/dL (74-106); SODIUM 138 mmol/L (136-145); UREA NITROGEN 17 mg/dL (7-18); eGFR NON AFRICAN AMERICAN > 90 mL/min (90-120)
--- NOTE | 2019-05-08 08:18 | NUR ---
PT INC OF URINE. LINENS CHANGED.
--- NOTE | 2019-05-08 08:23 | NUR ---
AT BS. BREAKFAST TRAY SERVED AND IS ASSISTING.
--- NOTE | 2019-05-08 10:34 | NUR ---
PT OOB WITH PT TO CHAIR. CHAIR ALARM ON. AT BS.
--- NOTE | 2019-05-08 14:20 | NUR ---
PT BACK TO BED WITH PT. AT .
--- NOTE | 2019-05-08 19:30 | NUR ---
patient reseting comfortably, attention focused on television. awake and alert, oriented to person only. pleasantly confused. vss cpoc - left hip wound open to air, gutierrez approximated - no redness or swelling, no visible drainage
--- NOTE | 2019-05-08 21:45 | NUR ---
PATIENT RECEIVED HS MEDS. TOLERATED WELL VSS CPOC
--- NOTE | 2019-05-08 23:15 | NUR ---
REASSESSMENT COMPLETED SEE FLOWSHEET
[2019-05-09] VITALS (24 sets, daily range): BP systolic 99–164; BP diastolic 45–83
--- NOTE | 2019-05-09 01:10 | NUR ---
NASAL CANNULA APPLIED AT THIS TIME, PATIENT UNABLE TO MAINTAIN 02 SATURATION
--- NOTE | 2019-05-09 03:12 | NUR ---
REASSESSMENT COMPLETED SEE FLOWSHEET
[2019-05-09 05:49] LABS: BASOPHILS 0.4 % (0-2); EOSINOPHILS 2.2 % (0-7); HEMOGLOBIN 10.9 g/dL (13.5-17.5); IMMATURE GRANULOCYTES 1.3 % (0-5); LYMPHOCYTES 6.8 % (15-50); MCH 27.3 pg (26.0-34.0); MCHC 31.1 g/dL (31.0-37.0); MCV 87.5 fL (80.0-100.0); MEAN PLATELET VOLUME 10.9 fL (7.4-10.4); MONOCYTES 16.5 % (2-11); NEUTROPHILS 72.8 % (40-80); PLATELET COUNT 184 10x3/uL (130-400); RDW 16.5 % (11.5-14.5)
[2019-05-09 05:53] LABS: WBC 8.5 10x3/uL (4.8-10.8)
[2019-05-09 06:00] LABS: CALC OSMOLALITY 281 mosm/kg (275-300); CALCIUM 8.1 mg/dL (8.5-10.1); CARBON DIOXIDE 30.7 mmol/L (21.0-32.0); CHLORIDE - SERUM 106 mmol/L (98-107); CREATININE - SERUM 0.8 mg/dL (0.6-1.3); GLUCOSE 105 mg/dL (74-106); POTASSIUM - SERUM 4.3 mmol/L (3.5-5.1); SODIUM 140 mmol/L (136-145); UREA NITROGEN 20 mg/dL (7-18); eGFR NON AFRICAN AMERICAN > 90 mL/min (90-120)
--- NOTE | 2019-05-09 07:00 | NUR ---
SHIFT ASSESSMENT COMPLETED, PT CARE ASSUMED.MONITORS ON AND WORKING, PT WAKES EASILY TO VERBAL STIMULI. PT CONFUSED TO TIME AND PLACE, VITALS STABLE, CALL LIGHT WITHIN REACH, WILL CONTINUE TO OBSERVE.
--- NOTE | 2019-05-09 09:00 | NUR ---
PT SITTING UP IN BED, MONITORS ON AND WORKING, VITALS STABLE. AT BEDSIDE, UPDATE PROVIDED. NO SIGNS/SYMPTOMS OF PAIN OR DISCOMFORT NOTED AT THIS TIME, CALL LIGHT WITHIN REACH, WILL CONTINUE TO OBSERVE.
--- NOTE | 2019-05-09 11:00 | NUR ---
PT SITTING UP IN CHAIR AT BEDSIDE, PT TOLERATED WELL.. MONITORS ON AND WORKING, VITALS STABLE. SEE FLOW SHEET FOR FURTHER DETAILS. CALL LIGHT WITHIN REACH, WILL CONTINUE TO OBSERVE.
--- NOTE | 2019-05-09 13:00 | NUR ---
PT ASSISTED BACK INTO BED PER PHYSICAL THERAPY, PT TOLERATED WELL. MONITORS ON AND WORKING, VITALS STABLE, CALL LIGHT WITHIN REACH, WILL CONTINUE TO OBSERVE.
--- NOTE | 2019-05-09 15:00 | NUR ---
PT RESTING, MONITORS ON AND WORKING, VITALS STABLE. AT BEDSIDE, SEE FLOW SHEET FOR FURTHER DETAILS. WILL CONTINUE TO OBSERVE.
--- NOTE | 2019-05-09 17:00 | NUR ---
PT RESTING IN BED, MONITORS ON AND WORKING, VITALS STABLE. FAMILY AT BEDSIDE, NO SIGNS/SYMPTOMS OF PAIN OR DISCOMFORT NOTED. CALL LIGHT WITHIN REACH, WILL CONTINUE TO OBSERVE.
--- NOTE | 2019-05-09 19:00 | NUR ---
REPORT RECIEVED, PT RESTING IN BED, AAOX2, DISORIENTED TO TIME AND SITUATION, REORIENTED NEEDED. NO ACUTE DISTRESS NOTED AT THIS TIME. WILL CONTINUE TO MONITOR.
--- NOTE | 2019-05-09 21:00 | NUR ---
PT RESTING IN BED, LINENS CHANGED, PM MEDS TAKEN WITHOUT DIFFICULTY. WILL CONTINUE TO MONITOR.
--- NOTE | 2019-05-09 23:00 | NUR ---
PT RESTING IN BED, AROUSES EASILY, NO ACUTE DISTRESS NOTED. WILL CONTINUE TO MONITOR.
[2019-05-10] VITALS (18 sets, daily range): BP systolic 95–156; BP diastolic 55–80
--- NOTE | 2019-05-10 01:00 | NUR ---
PT RESTING IN BED, AROUSES EASILY, DISORIENTED TO PLACE, TIME, AND SITUATION. REORIENTED NEEDED. PT IS AGITATED AND CONFUSED.
--- NOTE | 2019-05-10 03:00 | NUR ---
PT RESTING IN BED, DISORIENTED TO TIME, PLACE, AND SITUATION, REORIENTED NEEDED. PT IS AGITATED, BUT IS CALMED DOWN EASILY.
--- NOTE | 2019-05-10 05:00 | NUR ---
PT RESTING IN BED, CONFUSED AND DISORIENTED TO PLACE, TIME, AND SITUATION. REORIENTED NEEDED
[2019-05-10 05:45] LABS: BASOPHILS 0.4 % (0-2); EOSINOPHILS 1.9 % (0-7); HEMATOCRIT 32.3 % (42.0-54.0); HEMOGLOBIN 10.1 g/dL (13.5-17.5); IMMATURE GRANULOCYTES 0.9 % (0-5); LYMPHOCYTES 14.7 % (15-50); MCH 27.1 pg (26.0-34.0); MCHC 31.3 g/dL (31.0-37.0); MCV 86.6 fL (80.0-100.0); MEAN PLATELET VOLUME 10.8 fL (7.4-10.4); MONOCYTES 13.6 % (2-11); NEUTROPHILS 68.5 % (40-80); PLATELET COUNT 177 10x3/uL (130-400); RBC 3.73 10x6/uL (4.20-6.10); RDW 16.8 % (11.5-14.5)
[2019-05-10 05:53] LABS: CALC OSMOLALITY 288 mosm/kg (275-300); CARBON DIOXIDE 30.9 mmol/L (21.0-32.0); CHLORIDE - SERUM 108 mmol/L (98-107); CREATININE - SERUM 0.8 mg/dL (0.6-1.3); GLUCOSE 91 mg/dL (74-106); SODIUM 144 mmol/L (136-145); UREA NITROGEN 18 mg/dL (7-18); eGFR NON AFRICAN AMERICAN > 90 mL/min (90-120)
[2019-05-10 06:01] LABS: POTASSIUM - SERUM 3.5 mmol/L (3.5-5.1)
--- NOTE | 2019-05-10 09:53 | NUR ---
Nutrition follow-up: Pt in ICU since last follow-up. Diet has advanced to regular puree with thin liquids PO Intake 25-50% of some meals Labs reviewed ProcalAmine PPN has been discontinued Pt would benefit fro PEG tube placement and nutrition support started due to continued poor po intake. RDN following.
--- NOTE | 2019-05-10 17:29 | NUR ---
RECEIVED PATIENT FROM ICU, ALERT AND ORIENTED X1. NO C/O PAIN. NO S/S OF ACUTE DISTRESS NOTED. RESTING IN BED COMFORTABLY, FAMILY AT BEDSIDE. CALL LIGHT IN REACH. DENIES ANY NEEDS AT THIS TIME. WILL CONTINUE TO MONITOR.
--- NOTE | 2019-05-10 19:55 | NUR ---
AWAKE. LYING IN BED. ORIENTED TO SELF ONLY. CONFUSED. TRYING TO GET OOB WITHOUT HELP CAUSING ALARM TO ACTIVATE. IRRITABLE WITH STAFF AND UNCOOPERATIVE. RESP IRREG, NONLABORED. BRUISES NOTED TO BUE. DRSGS NOTED TO BUE SKIN TEARS. SKIN IS THIN, FRAGILE. DRSG NOTED TO LT HIP IS C/D/I. SCDS IN USE BILAT. LT CHEST WALL INFUSAPORT IS SALINE LOCKED. PEDAL PULSES ARE WEAK BILAT. NONPROD COUGH NOTED. SR ELEVATED X3. CL IN REACH. RENETTA ALARM ON.
--- NOTE | 2019-05-11 02:05 | NUR ---
AWAKE STILL. TRYING TO CLIMB OOB. CONFUSED AND CALLING OUT FOR PEOPLE NOT PRESENT. UNABLE TO REDIRECT BEHAVIOR. SWATTING AT STAFF WHO ARE TRYING TO PERFORM PERICARE DUE TO URINARY INCONTINENCE. STATES,"I'M TRYING TO GET OUT OF BED. MY MOTHER HAD CATARACT SURGERY AND I NEED TO GO CHECK ON HER.". RENETTA SHAH ON.
[2019-05-11 04:00] VITALS: BP 167/62
--- NOTE | 2019-05-11 06:25 | NUR ---
INCONT OF URINE. IRRITABLE WITH STAFF DURING PERICARE AND LINEN CHANGE. RENETTA ALARM IN USE FOR PT SAFETY. SR ELEVATED X3. CL IN REACH.
[2019-05-11 06:56] LABS: BASOPHILS 0.3 % (0-2); EOSINOPHILS 0.4 % (0-7); HEMATOCRIT 33.1 % (42.0-54.0); HEMOGLOBIN 10.2 g/dL (13.5-17.5); IMMATURE GRANULOCYTES 0.4 % (0-5); LYMPHOCYTES 13.6 % (15-50); MCH 26.9 pg (26.0-34.0); MCHC 30.8 g/dL (31.0-37.0); MCV 87.3 fL (80.0-100.0); MEAN PLATELET VOLUME 11.6 fL (7.4-10.4); MONOCYTES 11.3 % (2-11); RBC 3.79 10x6/uL (4.20-6.10)
[2019-05-11 07:03] LABS: ALBUMIN 2.2 g/dL (3.4-5.0); ALKALINE PHOSPHATASE 94 U/L (46-116); ALT (SGPT) 15 U/L (10-68); BILIRUBIN - TOTAL 1.07 mg/dL (0.2-1.3); C-REACTIVE PROTEIN 4.1 mg/dL (0.0-0.9); CALC OSMOLALITY 285 mosm/kg (275-300); CALCIUM 7.9 mg/dL (8.5-10.1); CARBON DIOXIDE 29.8 mmol/L (21.0-32.0); CHLORIDE - SERUM 108 mmol/L (98-107); CREATININE - SERUM 0.9 mg/dL (0.6-1.3); GLUCOSE 81 mg/dL (74-106); SODIUM 143 mmol/L (136-145); UREA NITROGEN 19 mg/dL (7-18); eGFR NON AFRICAN AMERICAN 86 mL/min (90-120)
[2019-05-11 07:06] LABS: POTASSIUM - SERUM 4.2 mmol/L (3.5-5.1)
[2019-05-11 07:28] LABS: PLATELET COUNT 234 10x3/uL (130-400); WBC 9.4 10x3/uL (4.8-10.8)
[2019-05-11 08:34] VITALS: BP 127/66
--- NOTE | 2019-05-11 09:00 | NUR ---
ASSESSMENT PER FLOW SHEET. PT IS WITHOUT DISTRESS.FALL PREVENTION IN PLACE.DOOR PEN TO MONITOR
[2019-05-11 12:53] VITALS: BP 123/56
--- NOTE | 2019-05-11 14:00 | NUR ---
SPOKE WITH AGATHA IN PHARMACY FOR RE.. THIAMIN DOSE FOR DAY.
--- NOTE | 2019-05-11 14:52 | NUR ---
Nutrition follow-up: Diet upgraded to mechanical soft with chopped meats/gravy thin liquids. PO intake @ lunch today ~40% of meal Labs reviewed ProcalAmine PPN discontinued 05/09 RDN will monitor patients progress, provide food choices and honor food preferences. RDN following.
[2019-05-11 17:02] VITALS: BP 152/65
--- NOTE | 2019-05-11 18:48 | NUR ---
REMAINS WITHOUT NEEDS,WITHOUT CHANGE. CONT PLAN OF CARE
--- NOTE | 2019-05-11 20:00 | NUR ---
LYING IN BED WITH EYES CLOSED. RESP EVEN AND NONLABORED. AWAKENED FOR ASSESSMENT. ALERT AND ORIENTED TO SELF ONLY. CONFUSED. SKIN IS THIN AND FRAGILE. BRUISES NOTED TO BUE. DRSGS NOTED TO SKIN TEARS ON BUE. INCONT OF URINE. DRSG NOTED TO LT HIP IS C/D/I. SCDS IN USE BILAT. WITHDRAWN. IRRITABLE AT TIMES. LT CW INFUSAPORT IS SALINE LOCKED. SR ELEVATED X3. CL IN REACH. RENETTA ALARM IN USE FOR PT SAFETY.
[2019-05-11 20:46] VITALS: BP 126/51
[2019-05-12 01:11] VITALS: BP 134/54
--- NOTE | 2019-05-12 02:28 | NUR ---
HAS RESTED MUCH BETTER THAN LAST NIGHT. CALMER. NO DISTRESS. CL IN REACH. RENETTA ALARM IN USE FOR PT SAFETY.
[2019-05-12 05:43] VITALS: BP 124/50
[2019-05-12 06:53] LABS: BASOPHILS 0.3 % (0-2); EOSINOPHILS 0.2 % (0-7); HEMATOCRIT 31.6 % (42.0-54.0); HEMOGLOBIN 9.8 g/dL (13.5-17.5); IMMATURE GRANULOCYTES 0.4 % (0-5); LYMPHOCYTES 15.9 % (15-50); MCH 27.1 pg (26.0-34.0); MCV 87.3 fL (80.0-100.0); MONOCYTES 13.5 % (2-11); NEUTROPHILS 69.7 % (40-80); PLATELET COUNT 270 10x3/uL (130-400); RBC 3.62 10x6/uL (4.20-6.10); RDW 17.4 % (11.5-14.5); WBC 9.6 10x3/uL (4.8-10.8)
[2019-05-12 07:41] LABS: ALBUMIN 2.1 g/dL (3.4-5.0); ALKALINE PHOSPHATASE 91 U/L (46-116); ALT (SGPT) 14 U/L (10-68); BILIRUBIN - TOTAL 0.73 mg/dL (0.2-1.3); CALC OSMOLALITY 287 mosm/kg (275-300); CARBON DIOXIDE 29.3 mmol/L (21.0-32.0); CHLORIDE - SERUM 108 mmol/L (98-107); CREATININE - SERUM 0.9 mg/dL (0.6-1.3); GLUCOSE 75 mg/dL (74-106); SODIUM 144 mmol/L (136-145); UREA NITROGEN 18 mg/dL (7-18); eGFR NON AFRICAN AMERICAN 86 mL/min (90-120)
[2019-05-12 08:46] VITALS: BP 114/54
[2019-05-12 12:10] VITALS: BP 108/58
[2019-05-12] MEDS ORDERED: BROVANA15 MCG/2 M INH (12:59)
[2019-05-12] MEDS ORDERED: Xopenex 0.63 MG INH INH (12:59)
[2019-05-12] MEDS ORDERED: ELIQUIS2.5 MG PO (13:00)
[2019-05-12] MEDS ORDERED: COLACE100 MG PO (13:01)
[2019-05-12] MEDS ORDERED: FOLIC ACID1 MG PO (13:01)
[2019-05-12] MEDS ORDERED: FLORAJEN3 CAPS460 MG PO (13:01)
[2019-05-12] MEDS ORDERED: MULTI-DAY VITAM1 TAB PO (13:01)
[2019-05-12] MEDS ORDERED: MUCINEX600 MG PO (13:01)
[2019-05-12] MEDS ORDERED: TESSALON PERLE100 MG PO (13:01)
[2019-05-12] MEDS ORDERED: VITAMIN B-1100 M1 PO (13:01)
[2019-05-12] MEDS ORDERED: PULMICORT0.5 MG/21 UPD (13:01)
[2019-05-12] MEDS ORDERED: CATAPRES0.1 MG PO (13:02)
[2019-05-12] MEDS ORDERED: MIRALAX17 GM PO (13:02)
[2019-05-12] MEDS ORDERED: ACETAMINOPHEN325 MG PO (13:02)
--- NOTE | 2019-05-12 14:01 | MORECARE ---
CASE MANAGEMENT DISCHARGE SUMMARY PATIENT: RUPERTO MOSER UNIT: [id number] ADM DATE: 04/29/19 AGE: 78 : 39 SEX: M ROOM/BED: D.2235 AUTHOR: SHU ANTHONY PHYSICIAN: REFERRING PHYSICIAN: MENDEL GAXIOLA MD DATE OF SERVICE: 05/12/19 Discharge Plan Patient Name: RUPERTO MOSER Facility: [facility]:[place] : 1940 Planned Disposition: Inpatient Rehab Anticipated Discharge Date: Discharge Date: Expected LOS: Initial Reviewer: [email or web address] Initial Review Date: 04/29/2019 Generated: 05/12/19 3:01 pm Comments DCP- Discharge Planning Updated by [email or web address]: Vashti Young on 05/12/19 1:[address] Patient Name: RUPERTO MOSER Encounter No: [id number] : 1940 Primary Insurance: MEDICARE A & B Anticipated DC Date: Planned Disposition: Inpatient Rehab External Planned Provider: : DCP follow-up note: Patient and family in agreement with discharge plan. No changes to plan. His niece, Megan, is in the room and states she will notify his . He is discharging to inpatient rehab today. Case management will follow and assist as needed. Vashti Hannah DCP- Discharge Planning Updated by [email or web address]: Kristine Villalobos on 05/07/19 5:[address] Physical Therapist stated that patient will need rehab v/s SNF upon discharge. depending on mental status at that time. CM will continue to follow and assist as needed with discharge planning / needs. DCP- Discharge Planning Updated by [id number]: Rhea Mao on 05/01/19 2:[address] CM SPOKE WITH PATIENT'S AT THE BEDSIDE. PATIENT IS POD #1. HE WAS OOB TO THE CHAIR FOR 1 1/2 HOUR TODAY W/ PHYSICAL THERAPY. HE IS STILL A LITTLE "DROWSY" PER HIS SINCE SURGERY. CM EXPALINED MY ROLE AND REQUESTED CONSENT TO PROCEED W/ THE ASSESSMENT. THE CONSENTED. SHE STATES THE METER RECORD CLERK DID DISCUSS INPATIENT REHAB. THE STATES HER WAS AT [facility] REH[facility] PREVIOUSLY AFTER GALL BLADDER. SHE STATES SHE DISCUSSED OPTIONS WITH HER DAUGHTER. THEY DECIDED REHAB WOULD BE A GOOD CHOICE. SHE WOULD LIKE [facility]. CM ADVISED OF [facility] AND [facility]. CM ENCIURAGE THE FAMILY TO VISIT BOTH. PCP- DR VAN TRUJILLO IN [facility] IS THE PHARMACY PROVIDER. DME- PATIENT HAS A WALKER WHICH HEHAS NEVER USED. THE PATIENT HAS BEEN TREATED FOR LUNG CANCER W/ CHEMO AND RADIATION THERAPIES. HE IS PRESENTLY RECEIVING IMMUNOTHERAPY WITH DR RIVERA AT [facility]. THE DID ADVISE THEM OF HIS ADMISSION TO [facility] HE HAD AN APPOINTMENT THE DAY OF ADMISSION. CM WILL FOLLOW TO ASSIST W/ DISCHARGE PLANNING. PATIENT IS RESTING. AT THE BEDSIDE. DCPIA - Discharge Planning Initial Assessment Updated by [email or web address]: Rhea Mao on 05/01/19 3:16 pm * Is the patient Alert and Oriented? Yes * How many steps to enter\\exit or inside your home? 3 SETS * PCP DR ARAUJO * Pharmacy [facility] * Preadmission Environment Home with Family * ADLs Independent * Equipment Walker * Other Equipment PATIENT HAS A WALKER WHICH HE HAS NEVER USED. REC WALKER WHEN HE WAS DISCHARGED FROM [facility] PREVIOUSLY * List name and contact numbers for known caregivers / representatives who currently or will assist patient after discharge: BALDEMAR MOSER- - [phone] * Community resources currently utilized None * Please name any agencies selected above. N/A * Additional services required to return to the preadmission environment? Yes * Can the patient safely return to the preadmission environment? Yes * Has this patient been hospitalized within the prior 30 days at any hospital? No Coverage Notice Reviewer: [id number] Shelby Young Notice Issued Date-Time: 05/12/2019 14:01 Notice Type: IM Discharge Notice Notice Delivered To: Family Member Relationship to Patient: Niece Outside Plant Engineer Name: Megan Elizondo Delivery Method: - Kendra Days: Prior Verbal Notification: Recipient Understood Notice: Recipient Signature: Kip Murdock Note Co-signed by Attending: Coverage Notice Comment: Last DP export: 05/07/19 6:05 Patient Name: RUPERTO MOSER Page [phone] at 1401 All edits/amendments must be made on the electronic document DICTATION DATE: 05/12/19 1401 PRESCHOOL ASSISTANT: DM 05/12/191400 RPT#: [id number] DC DATE: STATUS: ADM IN [facility] [address] [place] [address] END OF REPORT
[2019-05-12 16:35] VITALS: BP 105/51
--- NOTE | 2019-05-12 18:11 | NUR ---
D/C PAPERWORK SIGNED, VOICED NO CONCERNS, PORT REMAINED ACCESSED AT REHAB NURSE REQUEST, PT TRANSFERED BY W/C
--- NOTE | 2019-05-14 15:57 | MORECARE ---
CASE MANAGEMENT DISCHARGE SUMMARY PATIENT: RUPERTO MOSER UNIT: [id number] ADM DATE: 04/29/19 AGE: 78 : 39 SEX: M ROOM/BED: D.2235 AUTHOR: SHU ANTHONY PHYSICIAN: REFERRING PHYSICIAN: MENDEL GAXIOLA MD DATE OF SERVICE: 05/14/19 Discharge Plan Patient Name: RUPERTO MOSER Facility: [facility]:[place] : 1940 Planned Disposition: Inpatient Rehab Anticipated Discharge Date: Discharge Date: 05/12/2019 Expected LOS: 0 Initial Reviewer: [email or web address] Initial Review Date: 04/29/2019 Generated: 05/14/19 4:57 pm Comments DCP- Discharge Planning Updated by [email or web address]: Vashti Young on 05/12/19 1:[address] Patient Name: RUPERTO MOSER Encounter No: [id number] : 1940 Primary Insurance: MEDICARE A & B Anticipated DC Date: Planned Disposition: Inpatient Rehab External Planned Provider: : DCP follow-up note: Patient and family in agreement with discharge plan. No changes to plan. His niece, Megan, is in the room and states she will notify his . He is discharging to inpatient rehab today. Case management will follow and assist as needed. Vashti Young DCP- Discharge Planning Updated by [id number]: Kristine Villalobos on 05/07/19 5:[address] Physical Therapist stated that patient will need rehab v/s SNF upon discharge. depending on mental status at that time. CM will continue to follow and assist as needed with discharge planning / needs. DCP- Discharge Planning Updated by [id number]: Rhea Mao on 05/01/19 2:[address] CM SPOKE WITH PATIENT'S AT THE BEDSIDE. PATIENT IS POD #1. HE WAS OOB TO THE CHAIR FOR 1 1/2 HOUR TODAY W/ PHYSICAL THERAPY. HE IS STILL A LITTLE "DROWSY" PER HIS SINCE SURGERY. CM EXPALINED MY ROLE AND REQUESTED CONSENT TO PROCEED W/ THE ASSESSMENT. THE CONSENTED. SHE STATES THE LARRY OPERATOR DID DISCUSS INPATIENT REHAB. THE STATES HER WAS AT [facility] PREVIOUSLY AFTER GALL BLADDER. SHE STATES SHE DISCUSSED OPTIONS WITH HER DAUGHTER. THEY DECIDED REHAB WOULD BE A GOOD CHOICE. SHE WOULD LIKE [facility]. CM ADVISED OF [facility] AND [facility]. CM ENCIURAGE THE FAMILY TO VISIT BOTH. PCP- DR VAN TRUJILLO IN [facility] IS THE PHARMACY PROVIDER. DME- PATIENT HAS A WALKER WHICH HEHAS NEVER USED. THE PATIENT HAS BEEN TREATED FOR LUNG CANCER W/ CHEMO AND RADIATION THERAPIES. HE IS PRESENTLY RECEIVING IMMUNOTHERAPY WITH DR RIVERA AT [facility]. THE DID ADVISE THEM OF HIS ADMISSION TO [facility] HE HAD AN APPOINTMENT THE DAY OF ADMISSION. CM WILL FOLLOW TO ASSIST W/ DISCHARGE PLANNING. PATIENT IS RESTING. AT THE BEDSIDE. DCPIA - Discharge Planning Initial Assessment Updated by [id number]: Rhea Mao on 05/01/19 3:16 pm * Is the patient Alert and Oriented? Yes * How many steps to enter\\exit or inside your home? 3 SETS * PCP DR ARAUJO * Pharmacy [facility] AT [facility] * Preadmission Environment Home with Family * ADLs Independent * Equipment Walker * Other Equipment PATIENT HAS A WALKER WHICH HE HAS NEVER USED. REC WALKER WHEN HE WAS DISCHARGED FROM [facility] PREVIOUSLY * List name and contact numbers for known caregivers / representatives who currently or will assist patient after discharge: BALDEMAR MOSER- - [phone] * Community resources currently utilized None * Please name any agencies selected above. N/A * Additional services required to return to the preadmission environment? Yes * Can the patient safely return to the preadmission environment? Yes * Has this patient been hospitalized within the prior 30 days at any hospital? No Coverage Notice Reviewer: [id number] Shelby Young Notice Issued Date-Time: 05/12/2019 14:01 Notice Type: IM Discharge Notice Notice Delivered To: Family Member Relationship to Patient: Niece Tool Grinder Name: Megan Elizondo Delivery Method: HAND - Hand Delivered Kendra Days: Prior Verbal Notification: Recipient Understood Notice: Yes Recipient Signature: Yes Med Rec Note Co-signed by Attending: Coverage Notice Comment: IMM explained, signed, given, copy placed in MR Last DP export: 05/12/19 1:02 Patient Name: RUPERTO MOSER Page [id number] at 1557 All edits/amendments must be made on the electronic document DICTATION DATE: 05/14/191555 POULTRY FEED SUPERVISOR: EUSEBIO 05/14/19 155 RPT#: [id number] DC DATE:05/12/19 STATUS: DIS IN [facility] [address] [place] [address] END OF REPORT
--- NOTE | 2019-05-17 08:52 | OP ---
PATIENT NAME: RUPERTO MOSER MEDICAL RECORD: [id number] :[birth year] LOCATION:D.MS [id number] ADMISSION DATE:04/29/19 SURGEON: MICAELA MATTA MD DATE OF OPERATION: 04/30/2019 PREOPERATIVE DIAGNOSES: 1. Fracture of the left hip. 2. Displaced femoral neck fracture of the left hip. POSTOPERATIVE DIAGNOSES: 1. Fracture of the left hip. 2. Displaced femoral neck fracture of the left hip. PROCEDURE: Bipolar endoprosthetic replacement, left hip. SURGEON: Micaela Matta MD ANESTHESIA: General. INTRAOPERATIVE COMPLICATIONS: None. SUMMARY OF PATHOLOGIC FINDINGS: Displaced fracture of the left hip consistent with preoperative diagnosis. OPERATIVE SUMMARY IN DETAIL: After obtaining the appropriate preoperative orthopedic surgery consent as well as anesthetic consultation, evaluation and clearance, the patient was brought to the operating room and placed on the operating table in supine position. After general laryngeal mask airway was administered, the patient was placed in a right lateral decubitus position. All pressure points were well padded to include down leg peroneal pad as well as axillary roll. The patient was held firmly to the operating table using the vacuum pack suction system. Left lower extremity and hip were then prepped and draped in routine sterile fashion. Curvilinear incision was made over the greater trochanter, taken down to the IT band, was split in line with the fibers of the IT band to reveal the gluteus medius minimus attachment to the anterior aspect of the greater trochanter. These were reflected anteriorly. The hip capsule was then excised. Hematoma was present. The hip capsule was saved for later reapproximation. At this point, the femoral neck cut was made using the femoral neck cutting guide. The femoral head was then extracted from the acetabulum using the corkscrew apparatus. Serial and sequential reaming and broaching were then done for the appropriate sized bipolar stem. This was then put into place. Trials were undertaken and then the appropriate size was then tamped into place to the [place] taper. The hip was reduced, taken through range of motion and found to be stable in all planes. Intraoperative radiographs were taken showing good position and placement with good maintenance of the patient's leg length. Wound was copiously irrigated. The capsule was closed with #2 Ethibond and then this was followed by #5 Ethibond reapproximation of the gluteus medius minimus back to the greater trochanter and then the IT band was closed with #2 Ethibond followed by #1 Vicryl, 2-0 Vicryl, and skin gutierrez. Sterile dressings were applied. The patient was awakened and taken to recovery room in stable condition. All final needle and sponge counts were correct. TRANSINT:[id number] Voice Confirmation ID: [id number] DOCUMENT ID: [id number] OPERATIVE REPORT [id number] RUPERTO MOSER MD, MICAELA STEPHENSON at 0852 CC: [id number] DICTATION DATE: 05/13/19 1139 STUDENT FINANCE SPECIALIST: 05/13/19 1212 DIS IN 05/12/19 [facility] [address] [place] [address]
== END 2019-05-12 17:00 | DRG 469 ==
LOC: D.ER 09:13 → D.MS 12:00 → D.ICU 05-02 15:19 → D.MS 05-10 17:21
PROVIDERS: Family Medicine; Internal Medicine Nephrology; Orthopaedic Surgery; ADMIT Emergency Medicine; ATTEND Emergency Medicine
PROC: 0SRB0JZ Replacement of Left Hip Joint with Synthetic Substitute, Open Approach (ICD-10-PCS; principal; 2019-04-30 14:00)
DX: S72.92XA Unspecified fracture of left femur, initial encounter for closed fracture (principal); J96.21 Acute and chronic respiratory failure with hypoxia; J18.1 Lobar pneumonia, unspecified organism; G93.41 Metabolic encephalopathy; C34.90 Malignant neoplasm of unspecified part of unspecified bronchus or lung; J90 Pleural effusion, not elsewhere classified; N17.9 Acute kidney failure, unspecified; E87.0 Hyperosmolality and hypernatremia; E44.0 Moderate protein-calorie malnutrition; Z68.1 Body mass index [BMI] 19.9 or less, adult; F10.231 Alcohol dependence with withdrawal delirium; J98.11 Atelectasis; W19.XXXA Unspecified fall, initial encounter; J44.9 Chronic obstructive pulmonary disease, unspecified; E03.9 Hypothyroidism, unspecified; I10 Essential (primary) hypertension; N40.0 Benign prostatic hyperplasia without lower urinary tract symptoms; F03.90 Unspecified dementia, unspecified severity, without behavioral disturbance, psychotic disturbance, mood disturbance, and anxiety; D64.9 Anemia, unspecified; R53.81 Other malaise

== ENCOUNTER 2019-05-12 16:29 | Inpatient (IN) | payer MEDICARE, BC ==
[~2019-05-12] VITALS: Ht 175.3 cm; Wt 59.0 kg
[~2019-05-12 16:29] MED LIST changes: +ACETAMINOPHEN325 MG PO; +BROVANA15 MCG/2 M INH; +CATAPRES0.1 MG PO; +COLACE100 MG PO; +ELIQUIS2.5 MG PO; +FLORAJEN3 CAPS460 MG PO; +FOLIC ACID1 MG PO; +MIRALAX17 GM PO; +MUCINEX600 MG PO; +MULTI-DAY VITAM1 TAB PO; +PULMICORT0.5 MG/21 UPD; +TESSALON PERLE100 MG PO; +VITAMIN B-1100 M1 PO; +Xopenex 0.63 MG INH INH
[2019-05-12 18:31] VITALS: BMI 19.2
--- NOTE | 2019-05-12 19:10 | NUR ---
BEDSIDE REPORT COMPLETE. PT LYING IN BED EYES CLOSED RESTING QUIETLY. EASILY AROUSED WITH VERBAL STIMULI. INTRODUCED SELF TO PT AND UNDATED INFO BOARD IN ROOM. DENIES ANY NEEDS OR PAIN. NO SIGNS OF ACUTE DISTRESS NOTED. VS STABLE. SHIFT ASSESSMENT COMPLETE. LEFT CHEST INFUSAPORT ACCESSED. NO SWELLING OR REDNESS AT SITE. ATTEMPTED TO CHANGE DRESSING LAST CHANGE 05/02/19 PT REFUSED TO LET NURSING STAFF CHANGE DRESSING. EDUCATED PT ON IMPORTANCE OF DRESSING CHANGE PT CONTINUED TO REFUSE. CL IN REACH. FALL PRECAUTIONS IN PLACE. WILL CONTINUE TO MONITOR
[2019-05-12 21:20] VITALS: BP 125/56
--- NOTE | 2019-05-12 23:10 | NUR ---
QUIET HOURS. PT LYING IN BED ON RIGHT SIDE EYES CLOSED RESTING. RR EVEN AND UNLABORED. CL IN REACH
--- NOTE | 2019-05-13 03:30 | NUR ---
PT LYING IN BED EYES CLOSED RESTING QUIETLY. NO SIGNS OF ACUTE DISTRESS NOTED. CL IN REACH
--- NOTE | 2019-05-13 05:20 | NUR ---
PT LYING IN BED EYES CLOSED RESTING. EASILY AROUSED WITH VERBAL STIMULI. UNDERPADS AND GOWN SOILED WITH URINE. CHANGED UNDERPADS AND GOWN. PARTIAL BEDBATH DONE. FLUSHED LEFT CHEST INFUSAPORT WITH 10ML NS, 10ML BLOOD WITHDRAWN AND WASTED. 10ML BLOOD DRAWN AND INFUSED IN PROPER LAB VIALS AND LABELED. 10ML NS FLUSHED AND SWAB CAPS PLACED. CL IN REACH
[2019-05-13 06:33] LABS: BASOPHILS 0.4 % (0-2); EOSINOPHILS 0.1 % (0-7); HEMATOCRIT 30.3 % (42.0-54.0); HEMOGLOBIN 9.3 g/dL (13.5-17.5); IMMATURE GRANULOCYTES 0.6 % (0-5); LYMPHOCYTES 23.8 % (15-50); MCHC 30.7 g/dL (31.0-37.0); MCV 88.1 fL (80.0-100.0); MEAN PLATELET VOLUME 10.9 fL (7.4-10.4); MONOCYTES 11.5 % (2-11); NEUTROPHILS 63.6 % (40-80); PLATELET COUNT 316 10x3/uL (130-400); RBC 3.44 10x6/uL (4.20-6.10); RDW 17.7 % (11.5-14.5); WBC 8.4 10x3/uL (4.8-10.8)
[2019-05-13 07:02] LABS: ANION GAP 10.6 mmol/L (8-16); CREATININE - SERUM 1.1 mg/dL (0.6-1.3); POTASSIUM - SERUM 3.6 mmol/L (3.5-5.1)
--- NOTE | 2019-05-13 07:46 | NUR ---
REPORT RECIEVED. PT RESTING QUIETLY, RISE AND FALL OF CHEST NOTED. BED LOCKED AND IN LOWEST POSITION, CALL LIGHT WITHIN REACH. WILL CTM
[2019-05-13 08:00] VITALS: BP 104/53
[2019-05-13 08:41] VITALS: Ht 175.3 cm; Wt 59.0 kg
--- NOTE | 2019-05-13 12:00 | NUR ---
CLEANED PTS SKIN TEARS TO LEFT FA WITH ANTISEPTIC SPRAY. APPLIED NONADHERENT DRESSING, 4X4, AND THEN WRAPED WITH KERLEX. ORDERED A WOUND CARE CONSULT AT THIS TIME. WILL HAYDER
--- NOTE | 2019-05-13 14:42 | NUR ---
Pt has numerous skin tears on both arms. On the right arm the tears are open and the left arm the tears are covered with scabs. Recommended cleansing daily with saline or wound machinery cleaner and covering right arm with petroleum gauze and securing with kerlix. Left arm cover scabbed areas with mepilex border for protection. Wound care will monitor.
--- NOTE | 2019-05-13 18:36 | NUR ---
I have reviewed this patient and I concur with the Shift Assessment completed by the Licensed Practical Nurse today this shift.
--- NOTE | 2019-05-13 19:20 | NUR ---
BEDSIDE REPORT COMPLETE. PT SITTING UP IN BED WATCHING TV. DENIES ANY NEEDS OR PAIN. RR EVEN AND UNLABORED. VS STABLE. SHIFT ASSESSMENT COMPLETE. CL IN REACH. FALL PRECAUTIONS IN PLACE. WILL CONTINUE TO MONITOR
[2019-05-13 19:22] VITALS: BP 118/52
--- NOTE | 2019-05-13 23:36 | NUR ---
QUIET HOURS. PT LYING IN BED EYES CLOSED RESTING QUIETLY. RR EVEN AND UNLABORED. CL IN REACH
--- NOTE | 2019-05-14 02:29 | NUR ---
PT LYING IN BED ON RIGHT SIDE EYES CLOSED RESTING. RR EVEN AND UNLABORED. CL IN REACH
[2019-05-14 07:41] LABS: BASOPHILS 0.2 % (0-2); EOSINOPHILS 0.1 % (0-7); HEMATOCRIT 30.3 % (42.0-54.0); HEMOGLOBIN 9.2 g/dL (13.5-17.5); IMMATURE GRANULOCYTES 0.3 % (0-5); LYMPHOCYTES 24.9 % (15-50); MCH 27.1 pg (26.0-34.0); MCHC 30.4 g/dL (31.0-37.0); MCV 89.1 fL (80.0-100.0); MEAN PLATELET VOLUME 10.7 fL (7.4-10.4); MONOCYTES 12.2 % (2-11); NEUTROPHILS 62.3 % (40-80); PLATELET COUNT 377 10x3/uL (130-400); RDW 18.1 % (11.5-14.5); WBC 9.3 10x3/uL (4.8-10.8)
[2019-05-14 07:52] LABS: ANION GAP 7.8 mmol/L (8-16); CARBON DIOXIDE 29.9 mmol/L (21.0-32.0); CREATININE - SERUM 1.2 mg/dL (0.6-1.3); POTASSIUM - SERUM 3.7 mmol/L (3.5-5.1)
--- NOTE | 2019-05-14 07:52 | NUR ---
REPORT RECIEVED. PT SITTING UP IN BED. ALERT WITH SOME CONFUSION. RR EVEN AND UNLABORED. BED LOCKED AND IN LOWEST POSITION. CALL LIGHT WITHIN REACH. WILL CTM
[2019-05-14 07:57] VITALS: BP 109/52
--- NOTE | 2019-05-14 10:21 | NUR ---
The patient is brought back to his room via w/c from the gym, he says he feels pretty good. He has bilateral skin tears to his arms that have dressings and he is slow to move from w/c to the bed, but he was able to transfer with assist.
--- NOTE | 2019-05-14 10:46 | NUR ---
PATIENT ADMITTED TO REHAB FROM ACUTE FLOOR. DR. ARAUJO IS HIS PCP. DME AT HOME IS A ROLLING WALKER. HE HAS 3 SETS OF STEPS TO ENTER HIS HOME . I SPOKE WITH AND IF HE IS UNABLE TO RETURN HOME AT TIME OF DISHCARGE SHE WOULD LIKE A REFERAL TO [facility]. WILL CONTINUE TO FOLLOW WITH PATIENT.
[2019-05-14 19:17] VITALS: BP 113/48
--- NOTE | 2019-05-14 19:24 | NUR ---
RESTING IN BED WITH RESPIRATIONS UNLABORED. NO ACUTE DISTRESS NOTED. CALL LIGHT IN REACH.
--- NOTE | 2019-05-14 23:18 | NUR ---
SLEEPING WITH RESPIRATIONS UNLABORED. NO DISTRESS NOTED. CALL LIGHT IN REACH.
--- NOTE | 2019-05-15 01:12 | NUR ---
CONTINUES SLEEPING WITH RESPIRATIONS UNLABORED. NO DISTRESS NOTED. CALL LIGHT IN REACH.
--- NOTE | 2019-05-15 06:15 | NUR ---
MORNING WOUND CARE DONE AND MEDICATION GIVEN. PATIENT AGITATED STATING " YALL ARE GIVING ME MEDICATIONS THAT I DONT HAVE A PRESCRIPTON FOR. I AM GOING TO START ASKING TO SEE THE PRESCRIPTIONS." I EXPLAINED ALL MEDICATION I WAS GIVING HIM WAS ORDERED PER DOCTOR AND I SHOWED HIM ON THE COMPUTER. HE STATED HE STILL DIDNT BELIEVE ME AND WAS ARGUMENTATIVE. I REVIEWED HIS MEDICINE AGAIN AND HE STOPPED ARGUING FOR NOW. PATIENT WAS INCONTINENT OF URINE AND SMALL BM. INCONTIENCE CARE GIVEN AND PAJAMAS CHANGED.
[2019-05-15 07:46] VITALS: BP 124/53
--- NOTE | 2019-05-15 07:46 | NUR ---
PT SITTING UP EATING BREAKFAST, DENIES NEEDS. WCTM.
--- NOTE | 2019-05-15 08:08 | NUR ---
PT AM MEDS ADMINISTERED. PT DENIES NEEDS. WCTM.
--- NOTE | 2019-05-15 18:08 | NUR ---
PT BECAME ARGUMENTATIVE AND COMBATIVE WITH FAMILY MEMBERS. PT WAS DISORIENTED AND DEMANDING TO GO HOME. ATTEMPTED TO RE-ORIENT PT. PT HAD AN EPISODE OF URINARY INCONTINENCE. AFTER TALKING WITH PT FOR 30 MINUTES THIS NURSE CONVICED PT TO ALLOW ME TO CHANGE HIS CLOTHES. PT THEN INSISTED HE WAS LEAVING AGAIN AND STATED HE WAS WALKING OUT. THIS NURSE ALLOWED PT TO ATTEMPT TO STAND ON HIS OWN AND PT WAS UNABLE TO STAND WITHOUT ASSISTANCE. PT BECAME MORE AGITATED AND YELLED AT FAMILY AND MYSELF TO GET OUT. PT BED ALARM ON. WCTM.
[2019-05-15 19:14] VITALS: BP 105/42
--- NOTE | 2019-05-15 19:20 | NUR ---
AWAKE AND VITAL SIGNS TAKEN. PATIENT ARGUMENTATIVE AND INITIALLY REFUSED TO HAVE VITALS TAKEN. I EXPLAINED IMPORTANCE OF HAVING HIS VITAL SIGNS CHECKED AND HE FINALLY AGREED. RESPIRATIONS UNLABORED. NO DISTRESS NOTED. CALL LIGHT IN REACH.
--- NOTE | 2019-05-16 00:51 | NUR ---
SLEEPING WITH NO DISTRESS NOTED. CALL LIGHT IN REACH.
--- NOTE | 2019-05-16 02:16 | NUR ---
AWAKE AND SLIGHTLY CONFUSED TO PLACE AND SITUATION. REOIRENTED PER NURSE. RESTING IN BED WITH NO ACUTE DISTRESS NOTED. CALL LIGHT IN REACH.
--- NOTE | 2019-05-16 06:23 | NUR ---
QUIET HOURS. STATES HE DIDNT SLEEP MUCH. NOTED SLEEPING AT INTERVALS. ASSISTED TO BATHROOM AND BACK TO BED. HAS HAD SOME DISORIENTATION THIS SHIFT OF SITUATION PLACE AND TIME. SEEMS ORIENTED NOW THIS AM. INCISION TO LEFT HIP HEALING WITH TIAGO INTACT.
--- NOTE | 2019-05-16 09:41 | NUR ---
PT AM MEDS ADMINISTERED. PT FAMILY IN ROOM. PT DENIES NEEDS AT THIS TIME. WCTM.
[2019-05-16 10:05] VITALS: BP 138/48
[2019-05-16 18:58] VITALS: BP 104/44
--- NOTE | 2019-05-16 19:02 | NUR ---
AWAKE AND ALERT. RESTING IN BED WITH RESPIRATIONS UNLABORED. CALM AND COOPERATIVE FOR NOW. DRESSINGS INTACT TO LEFT ARM AND RIGHT ARM. NO ACUTE DISTRESS NOTED. CALL LIGHT IN REACH.
--- NOTE | 2019-05-16 23:58 | NUR ---
RESTING IN BED WITH RESPIRATIONS UNLABORED. NO DISTRESS NOTED.
--- NOTE | 2019-05-17 02:49 | NUR ---
CONTINUES SLEEPING WITH RESPIRATIONS UNALBORED. NO DISTRESS NOTED.
[2019-05-17 06:24] LABS: BASOPHILS 0.4 % (0-2); EOSINOPHILS 0.3 % (0-7); HEMATOCRIT 30.9 % (42.0-54.0); HEMOGLOBIN 9.5 g/dL (13.5-17.5); IMMATURE GRANULOCYTES 0.3 % (0-5); LYMPHOCYTES 28.7 % (15-50); MCH 27.5 pg (26.0-34.0); MCHC 30.7 g/dL (31.0-37.0); MCV 89.6 fL (80.0-100.0); MEAN PLATELET VOLUME 10.3 fL (7.4-10.4); MONOCYTES 12.4 % (2-11); NEUTROPHILS 57.9 % (40-80); PLATELET COUNT 438 10x3/uL (130-400); RBC 3.45 10x6/uL (4.20-6.10); RDW 18.4 % (11.5-14.5)
[2019-05-17 06:38] LABS: CALC OSMOLALITY 279 mosm/kg (275-300); CALCIUM 8.2 mg/dL (8.5-10.1); CARBON DIOXIDE 25.6 mmol/L (21.0-32.0); CHLORIDE - SERUM 108 mmol/L (98-107); GLUCOSE 89 mg/dL (74-106); SODIUM 141 mmol/L (136-145); UREA NITROGEN 12 mg/dL (7-18); eGFR NON AFRICAN AMERICAN 76 mL/min (90-120)
[2019-05-17 07:45] VITALS: BP 114/55
--- NOTE | 2019-05-17 10:09 | NUR ---
PT TIAGO TO LEFT HIP DC'D AT THIS TIME. PT RESTING IN BED AND DENIES NEEDS. WCTM.
[2019-05-17 19:15] VITALS: BP 111/34
--- NOTE | 2019-05-17 19:15 | NUR ---
BEDSIDE REPORT COMPLETE. PT LYING IN BED ON RIGHT SIDE EYES CLOSED RESTING. EASILY AROUSED WITH VERBAL STIMULI. ALERT AND ORIENTED X3. DENIES ANY NEEDS OR PAIN. NO SIGNS OF ACUTE DISTRESS NOTED. VS STABLE. SHIFT ASSESSMENT COMPLETE. BUE DRESSING C/D/I. CL IN REACH. FALL PRECAUTIONS IN PLACE. WILL CONTINUE TO MONITOR
--- NOTE | 2019-05-18 00:40 | NUR ---
QUIET HOURS. PT LYING IN BED ON LEFT SIDE EYES CLOSED RESTING QUIETLY. RR EVEN AND UNLABORED. CL IN REACH
--- NOTE | 2019-05-18 04:12 | NUR ---
PT LYING IN BED ON LEFT SIDE EYES CLOSED RESTING. BRIEF AND BED LINENS CLEAN AND DRY. NO SIGNS OF ACUTE DISTRESS NOTED. CL IN REACH
--- NOTE | 2019-05-18 06:42 | NUR ---
PT LYING IN BED ON LEFT SIDE EYES CLOSED RESTING. RR EVEN AND UNLABORED. CL IN REACH
[2019-05-18 08:09] VITALS: BP 108/43
--- NOTE | 2019-05-18 11:01 | NUR ---
Nutrition Follow-up: Diet: Regular with [facility] soft ground meats and thin liquids PO intake: ~36% average x last 12 meals recorded; patient reports that his appetite is fine but that he doesn't like the food. Last BM: 05/17/19. Wt: 130# (05/13/19), no new wt. Labs. meds, and nursing skin assessment all reviewed. Continue current diet. Will add Ensure TID with meals. Encourage PO intake. RD Following.
[2019-05-18 19:00] VITALS: BP 118/48
--- NOTE | 2019-05-18 19:00 | NUR ---
BEDSIDE REPORT COMPLETE. PT LYING IN BED ON RIGHT SIDE ALERT AND ORIENTED X3. REORIENTED TO SITUATION. FAMILY AT BEDSIDE NOTED. BUE DRESSING C/D/I. DENIES ANY NEEDS OR PAIN. NO SIGNS OF ACUTE DISTRESS NOTED. VS STABLE. SHIFT ASSESSMENT COMPLETE. CL IN REACH. FALL PRECAUTIONS IN PLACE. WILL CONTINUE TO MONITOR
--- NOTE | 2019-05-18 23:47 | NUR ---
QUIET HOURS. PT LYING IN BED ON RIGHT SIDE EYES CLOSED RESTING. RR EVEN AND UNLABORED. CL IN REACH
--- NOTE | 2019-05-19 02:50 | NUR ---
ASSISTED PT TO RESTROOM AND BACK TO BED WITH MOD ASSIST. NO SIGNS OF ACUTE DISTRESS NOTED. CL IN REACH
--- NOTE | 2019-05-19 05:41 | NUR ---
PT LYING IN BED ALERT AND AWAKE. ASSISTED TO RESTROOM WITH MOD ASSIST. DENIES ANY NEEDS OR PAIN. RR EVEN AND UNLABORED. CL IN REACH
[2019-05-19 05:42] LABS: ANION GAP 10.4 mmol/L (8-16); CALCIUM 8.2 mg/dL (8.5-10.1); CARBON DIOXIDE 27.4 mmol/L (21.0-32.0); CREATININE - SERUM 1.1 mg/dL (0.6-1.3); POTASSIUM - SERUM 3.8 mmol/L (3.5-5.1)
[2019-05-19 05:44] LABS: BASOPHILS 0.3 % (0-2); EOSINOPHILS 1.4 % (0-7); HEMATOCRIT 29.1 % (42.0-54.0); IMMATURE GRANULOCYTES 0.2 % (0-5); LYMPHOCYTES 21.7 % (15-50); MCH 27.6 pg (26.0-34.0); MCHC 30.9 g/dL (31.0-37.0); MCV 89.3 fL (80.0-100.0); MONOCYTES 18.8 % (2-11); NEUTROPHILS 57.6 % (40-80); PLATELET COUNT 411 10x3/uL (130-400); RBC 3.26 10x6/uL (4.20-6.10); RDW 17.9 % (11.5-14.5); WBC 6.4 10x3/uL (4.8-10.8)
[2019-05-19 07:48] VITALS: BP 122/50
--- NOTE | 2019-05-19 08:00 | NUR ---
SHIFT ASSMT COMPLETED.
--- NOTE | 2019-05-19 15:39 | NUR ---
CARE TEAM MEETING: PATIENT DOING WELL IN THERAPY AND WILL DISCHARGE IN AM HOME WITH HIS FAMILY. WILL CONTINUE TO FOLLOW WITH PATIENT
--- NOTE | 2019-05-19 19:55 | NUR ---
AWAKE AND ALERT. JUST HAD BREATHING TREATMENTS. NO RESPIRATORY DISTRESS NOTED. CALL LIGHT IN REACH.
[2019-05-19 21:32] VITALS: BP 145/49
--- NOTE | 2019-05-20 03:12 | NUR ---
RESTING IN BED NOW. HAD BEEN UP X 30 MINUTES DUE TO BEING [id number] ABOUT TIME. DRANK SOMETHING AND THEN ALLOWED ME TO ASSIST HIM TO BED. RESTING QUIETLY. NO DISTRESS NOTED.
--- NOTE | 2019-05-20 06:17 | NUR ---
QUIET HOURS. NO ACUTE CHANGES IN CONDITION THIS SHIFT. NO DISTRESS NOTED. CALL LIGHT IN REACH.
--- NOTE | 2019-05-20 08:00 | NUR ---
SHIFT ASSMT COMPLETED.DENIES NEEDS.BREAKFAST GIVEN.CL IN REACH.PLAN TO DC HOME TODAY.
--- NOTE | 2019-05-20 08:27 | RHP ---
PATIENT: RUPERTO MOSER MEDICAL RECORD: [id number] ACCOUNT: [id number] LOCATION:[facility]110[address] : 38 ADMISSION DATE: 05/12/19 REHABILITATION HISTORY AND PHYSICAL EXAMINATION POST ADMISSION PHYSICIAN EXAMINATION POST ADMISSION PHYSICAL EXAM AND HISTORY AND PHYSICAL DATE OF ADMISSION: 05/12/2019 ADMITTING DIAGNOSIS: Acute metabolic encephalopathy. HISTORY OF PRESENT ILLNESS: The patient is a 78-year-old gentleman with past medical history of lung cancer, currently on chemotherapy, being treated by Dr. Fraire at [facility]. He has got chronic hypoxic respiratory failure, hypertension, hypothyroidism, alcohol use, dementia. He presented to the ED after falling with leg pain. He was admitted with a hip fracture. He underwent a left bipolar hemiarthroscopy on April 30. He had a rapid response on May 02 secondary to being lethargic and unresponsive. He has been put on Librium for DT prophylaxis. He was transferred to the ICU. He was on BiPAP with high flow oxygen until May 11. He has been receiving blood due to postop anemia. He is now beginning to clear somewhat mentally and sitting up at bedside along with feeding and able to ambulate a few feet. He continues to have precautions for DTs. He is on IV medications. He has got vital signs that are being monitored closely along with lab work, also watching his O2 saturation and his mental status. His intake and output are also being closely managed to manage his diet per speech therapy recommendations. Decondition, weakness, debility, impaired mobility, gait disturbance, impaired cognition, high fall risk, and self-care deficits. These are all barriers to his discharge home. He lives at home with his , was independent with his mobility and ADLs, currently min assist to max assist for ADLs and mobility. He and his would like for him to return home at his prior level of functioning or better if possible. Comorbidities in this patient include oropharyngeal dysphagia, dysarthria, status post left bipolar endoprosthesis, history of aspiration pneumonia, normocytic anemia, acute DTs, metabolic encephalopathy, [id number]-zb-[id number] respiratory failure, malnutrition, lung cancer, acute blood loss anemia, musculoskeletal pain, tobacco dependence, benign prostatic hypertrophy, hypertension. PAST MEDICAL HISTORY: Significant for thyroid problems, hypertension, lung cancer. He has been a pretty heavy drinker. He has had prostate problems, COPD, chronic hypoxic respiratory failure. PAST SURGICAL HISTORY: Includes back surgery. ALLERGIES: SULFA DRUGS. CURRENT MEDICATIONS: Include Floranex 460 mg daily, thiamine 50 mg daily. He is on Flomax 0.4 mg daily, multivitamin 1 tab daily, metoprolol 25 mg daily, folic acid 1 mg daily. He is on heparin flush as needed. Protonix 40 mg daily, Synthroid 100 mcg daily. He is on MiraLax 17 g in 8 ounces of water b.i.d. Guaifenesin 600 mg b.i.d., Colace 100 mg b.i.d., Tessalon Perles 100 mg t.i.d., Eliquis 2.5 mg b.i.d. He is on an electrolyte protocol at this time. He is on Xopenex 0.63 mg per respiratory therapy t.i.d. He is on Pulmicort 0.5 mg b.i.d., Brovana 15 mcg b.i.d. He is on Catapres 0.1 mg every 8 hours p.r.n. and HISTORY AND PHYSICAL [id number] RUPERTO MOSER Tylenol 650 every 4 hours p.r.n. HABITS: He does have a history of tobacco and alcohol use. FAMILY HISTORY: Noncontributory. SOCIAL HISTORY: The patient hopes to return back to his prior level of functioning on return home. REVIEW OF SYSTEMS: GENERAL: Does complain of weakness and fatigue. HEENT: Denies cold, cough, or congestion. CARDIOVASCULAR: Denies any chest pain. PHYSICAL EXAMINATION: VITAL SIGNS: Stable, afebrile. GENERAL: A thin elderly gentleman, in no acute distress upon exam. HEENT: Normocephalic and atraumatic. Mucosa moist. NECK: Supple. No lymphadenopathy. LUNGS: Clear in the upper mckeon. CARDIOVASCULAR: Regular rate and rhythm. He does have a II/ systolic ejection murmur. ABDOMEN: Soft, benign, nondistended. Positive bowel sounds times 4. EXTREMITIES: No clubbing, cyanosis or edema. Postop area appears normal. NEUROLOGIC: He is mainly intact. He does have some proximal muscle weakness in his thighs. LABORATORY DATA: White count is 8.4, H&H of 9 and 30, and platelet count was noted to be 316. His sodium is 145, potassium 3.6, BUN and creatinine of 18 and 1.1, and blood sugar is noted to be 85. ASSESSMENT: This is a 78-year-old gentleman admitted to the rehab with a working diagnosis of metabolic encephalopathy. The patient has potential to make improvement. We will institute the following multidisciplinary therapies including, but not limited to, physical, occupational, respiratory, speech, nutritional services, prosthetics, and orthotics. Given his complex medical condition and risks for more complications, rehabilitation services cannot be provided at a lower level of care such as a skilled nurse facility. PLAN: 1. Admit to [facility] for an inpatient therapy to include the following disciplines; A. Physical therapy to improve gait, all transfer skills, and bed mobility to modified independent level. B. Occupational therapy to improve activities of daily living. C. Case management to assist with discharge planning and placement options. D. Nutrition to assist with nutritional needs. E. Rehabilitation nursing to assist in monitoring the patient's underlying medical conditions and to assist with any type of bowel or bladder management. 2. The patient's current medications and medical care will be continued. 3. The patient will be placed on standard fall precautions. 4. The patient's estimated length of stay is approximately 7-10 days. 5. We will see again in the a.m. TRANSINT:[id number] Voice Confirmation ID: [id number] DOCUMENT ID: [id number] HISTORY AND PHYSICAL [id number] RUPERTO MOSER notes whether there has been none or any medical/functional change since admission: - No change since preadmission screen. HENRY attests patient continues to be appropriate for IRF: - Continues to be appropriate. SHIRLEY DWYER MD at 0827 CC: [id number] DICTATION DATE: 05/13/19 0840 RENTAL SALES REPRESENTATIVE: 05/13/19 0903 ADM IN [facility] [address] [place] [address]
[2019-05-20 08:34] VITALS: BP 114/50
--- NOTE | 2019-05-20 09:23 | NUR ---
PATIENT DISCHARGING HOME TODAY WITH FAMILY. [facility] WILL PROVIDE THERAPY AT HOME.NO NEW DME NEEDED AT THIS TIME. DR. ARAUJO 05/26/19 @ 1:15, DR. MATTA 06/01/19 @ 1:45. PATIENT CHOICE FORM (HANDOUT GIVEN) AND [facility] FORMS SIGNED, COPY GIVEN TO PATIENT AND FILED IN CHART. DSICHARGE INSRUCTIONS FAXED TO PCP, HOME HEALTH AND REVIEWED WITH PATIENT AND SPOUSE.
--- NOTE | 2019-05-20 15:15 | NUR ---
REVIEWED DC WITH .MEDS CALLED TO PHARMACY.APPTS GIVEN.DISCHARGED IN STABLE CONDITION.
== END 2019-05-20 16:00 | disposition home health service (06) | DRG 70 ==
LOC: D.PSYCH 16:29 → D.REHAB 16:30
PROVIDERS: ADMIT Emergency Medicine; ATTEND Emergency Medicine
DX: G93.41 Metabolic encephalopathy (principal); J96.20 Acute and chronic respiratory failure, unspecified whether with hypoxia or hypercapnia; J18.1 Lobar pneumonia, unspecified organism; E46 Unspecified protein-calorie malnutrition; D62 Acute posthemorrhagic anemia; F10.231 Alcohol dependence with withdrawal delirium; E87.0 Hyperosmolality and hypernatremia; J98.11 Atelectasis; E44.0 Moderate protein-calorie malnutrition; R13.12 Dysphagia, oropharyngeal phase; R47.1 Dysarthria and anarthria; D64.9 Anemia, unspecified; F17.200 Nicotine dependence, unspecified, uncomplicated; I10 Essential (primary) hypertension; N40.0 Benign prostatic hyperplasia without lower urinary tract symptoms; M79.18 Myalgia, other site; R53.1 Weakness; J43.9 Emphysema, unspecified; E03.9 Hypothyroidism, unspecified

== ENCOUNTER → 2019-11-17 09:44 | Outpatient (CLI) | payer MEDICARE, BC ==
[2019-05-13 08:41] VITALS: BMI 19.2
== END | disposition home or self-care (01) ==
LOC: D.CT 09:30
PROVIDERS: ATTEND Internal Medicine Hematology & Oncology
DX: C34.11 Malignant neoplasm of upper lobe, right bronchus or lung (principal); C77.1 Secondary and unspecified malignant neoplasm of intrathoracic lymph nodes; D51.8 Other vitamin B12 deficiency anemias